=== PATIENT | female | born 1975 | race Caucasian/White ===

== ENCOUNTER 2025-10-14 18:18 | Inpatient (IN) | payer BC, SELFPAY ==
[2025-10-14] VITALS (27 sets, daily range): BP systolic 103–160; BP diastolic 61–93; PULSE 55–79; TEMP 36.4–36.6; O2SAT 94–100; BMI 33.7; BMI 31.6
--- NOTE | 2025-10-14 18:36 | ECG_ITS ---
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 Measurements Intervals [place] Rate: 62 P: 18 HI: 132 QRS: 78 QRSD: 84 T: 52 QT: 396 QTc: 401 Interpretive Statements 1100 Sinus rhythm 9110 normal ECG No previous ECG available for comparison Electronically Signed On 10-15-2025 21:52:28 EST by IAN VARGHESE M.D.
--- NOTE | 2025-10-14 18:40 | CT_ITS ---
The [address] [address] Patient Name: MARCIE SINCLAIR MRN: [id number] date: 1975 Sex: F Assigned Patient Location: ER Current Patient Location: ED.[facility] Accession/Order Number: [id number] Exam Date: 10/14/2025 18:48 Report Date: 10/14/2025 19:06 At the request of: SANTHOSH MENDEZ Procedure: CT stroke head/brain wo con CT BRAIN WITHOUT CONTRAST: CLINICAL HISTORY: Dizziness, Aphasia COMPARISON: None TECHNIQUE: Contiguous axial unenhanced images were obtained through the brain. This CT exam was performed using one or more following dose reduction techniques: Automated exposure control, adjustment of the mA and/or kV according to patient size, or use of iterative reconstruction technique. FINDINGS: There is no evidence of midline shift, intra or extra-axial fluid collection, hemorrhage or CT evidence of acute large vascular distribution stroke Visualized intraorbital contents appear unremarkable. Visualized paranasal sinuses are clear. The surrounding soft tissues are normal. CT/CT stroke head/brain wo con IMPRESSION: NO ACUTE INTRACRANIAL ABNORMALITY. Discussed with the ordering clinician over telephone 1904 hours 10/14/2025 Impression dictated by: Raj Quesada M.D. 10/14/2025 7:06 PM Dictation Location: [place] [address] Electronically authenticated by: [id number] Y Date: 10/14/2025 19:06
--- NOTE | 2025-10-14 19:03 | ED.GENADUL1 ---
HPI HPI - General Adult General Chief complaint: Neuro Symptoms/Deficit Stated complaint: Dizziness Time Seen by Provider: 10/14/25 18:40 Source: patient Mode of arrival: walk-in Limitations: no limitations History of Present Illness HPI narrative: Patient is a 50-year-old female with a PMH of diabetes type 2, implanted loop recorder for bradycardia, and migraines that presents to the emergency department with complaints of blurry vision and feeling fog brained since about 2 to 3 PM today. She denies any previous history of this, does have a history of migraines. She started to get dizzy when she was walking around earlier which caused her to vomit. She denies any nausea. She feels she is having trouble getting her words out now. She denies taking any anticoagulation or antiplatelet medication. Related Data Home Medications ?Medication ?Instructions ?Recorded ?Confirmed alprazolam 0.5 mg tablet mg 10/14/25 estradiol 0.1 mg/24 hr weekly 10/14/25 transdermal patch midodrine 5 mg tablet mg 10/14/25 sertraline 100 mg tablet mg 10/14/25 sitagliptin phosphate 100 mg mg 10/14/25 tablet (Januvia) topiramate 100 mg tablet mg 10/14/25 Allergies Allergy/AdvReac Type Severity Reaction Status Date / Time Penicillins Allergy Severe Hives Verified 10/14/25 19:00 adhesive tape AdvReac Rash Verified 10/14/25 19:00 Opioid HPI Opioid Management Most Recent Opioid Data: Last Pain Scale 4 Today, 18:23 Review of Systems ROS Status of ROS 10 or more systems reviewed and unremarkable except as noted in history and below PFSH PFS Medical History (Updated 10/14/25 @ 21:13 by Andria Butler RN) Implantable loop recorder present ?Z95.818 - Presence of other cardiac implants and grafts (ICD-10) Migraine ?G43.909 - Migraine, unspecified, not intractable, without status migrainosus (ICD-10) Depression ?F32.A - Depression, unspecified (ICD-10) Anxiety ?F41.9 - Anxiety disorder, unspecified (ICD-10) Type 2 diabetes mellitus ?E11.9 - Type 2 diabetes mellitus without complications (ICD-10) Hypotension ?I95.9 - Hypotension, unspecified (ICD-10) Bradycardia ?R00.1 - Bradycardia, unspecified (ICD-10) Social History Little interest or pleasure in doing things: not at all Feeling down, depressed, or hopeless: not at all Exam Narrative Exam Narrative: General: No distress, age-appropriate Skin: Warm, dry, no pallor. No rash. Head: Normocephalic, atraumatic. Neck: Supple, non-tender. Eye: Pupils are equal, round and EOMI. No scleral icterus. Ears, Nose, Mouth, and Throat: No nasal mucosal hypertrophy. Oral mucosa is moist, no posterior oropharynx erythema, uvula is mid-line Cardiovascular: Regular Rate and Rhythm without murmur, gallop or rub. Respiratory: No accessory muscle use or respiratory distress. Lungs are clear to auscultation, no wheezing, rales or rhonchi Chest Wall: no tenderness Musculoskeletal: Full ROM of all extremities, no calf or popliteal tenderness GI: Abdomen is soft, non-distended, non tender to palpation. No masses appreciated. No rebound, guarding, or rigidity noted. Neurological: A&O x4. Mild aphasia. No cranial nerve dysfunction observed. No truncal ataxia. Moves all extremities. Sensation intact. Psychiatric: Cooperative and interactive. Normal mood and affect. Constitutional Vital Signs, click to edit/add: Last Vital Signs Temp 97.9 F 10/14/25 18:23 Pulse 78 10/14/25 18:23 Resp 20 10/14/25 18:23 BP 160/93 H 10/14/25 18:23 Pulse Ox 100 10/14/25 18:23 O2 Del Method Room Air 10/14/25 18:23 Documenting provider has reviewed patient's vital signs: yes Course Vital Signs Vital signs: Vital Signs Temperature 97.9 F 10/14/25 18:23 Pulse Rate 78 10/14/25 18:23 Respiratory Rate 20 10/14/25 18:23 Blood Pressure 160/93 H 10/14/25 18:23 Pulse Oximetry 100 10/14/25 18:23 Oxygen Delivery Method Room Air 10/14/25 18:23 Temperature 97.9 F 10/14/25 18:23 Pulse Rate 78 10/14/25 18:23 Respiratory Rate 20 10/14/25 18:23 Blood Pressure 160/93 H 10/14/25 18:23 Pulse Oximetry 100 10/14/25 18:23 Oxygen Delivery Method Room Air 10/14/25 18:23 Medical Decision Making MDM Narrative Medical decision making narrative: 50-year-old female presenting with acute-onset blurry vision, dizziness with vomiting, cognitive ?fog,? and new mild expressive aphasia (NIHSS 1) that started around 2pm today. PMH significant for Type 2 diabetes, migraines, and loop recorder placement for bradycardia. Given the sudden focal neurologic deficit, stroke/TIA remained the primary concern on arrival. EKG, NSR, no ischemic changes. CT head was negative for acute hemorrhage and CTA head/neck showed no large vessel occlusion or hemodynamically significant stenosis. CBC and CMP were within normal limits and vitals remained stable, making metabolic or infectious etiologies less likely. Differential includes small cortical ischemic stroke, TIA (including possible cardioembolic source given arrhythmia history), and complex migraine. Due to persistent symptoms, mechanisms of potential stroke not excluded by CT/CTA, and need for MRI brain patient is admitted for further workup and continued neurologic assessment. I did discuss her imaging and lab results and recommended admission and she is agreeable. I did speak with Dr. Gan for admission and he is agreeable to admit patient to observation. Patient given aspirin 325 mg in ED. Vital signs stable and neurological exam remained unchanged during her ED course. Patient admitted to the floor in stable condition. Differential Diagnosis Differential Diagnosis: Ischemic stroke, TIA, migraine with aura, intracranial hemorrhage Lab Data Lab results reviewed: Yes I reviewed the patient's lab results Labs: Lab Results 10/14/25 Range/Units 18:30 WBC 9.9 (4.0-11.0) 10^3/uL RBC 5.01 (4.20-5.40) 10^6/uL Hgb 13.7 (12.0-16.0) g/dL Hct 42.7 (36.0-48.0) % MCV 85.2 (81.0-99.0) fL MCH 27.3 (26.7-34.0) pg MCHC 32.1 (29.9-35.2) g/dL RDW 14.1 (11.0-15.0) % Plt Count 365 (150-450) 10^3/uL MPV 10.1 (9.5-13.5) fL Neut % (Auto) 59.7 (43.0-75.0) % Lymph % (Auto) 31.5 (20.5-60.0) % [place] % (Auto) 6.3 (1.7-12.0) % Eos % (Auto) 1.4 (0.9-7.0) % Baso % (Auto) 0.7 (0.2-2.0) % Neut # (Auto) 5.9 (1.4-6.5) 10^3/uL Lymph # (Auto) 3.1 (1.2-3.8) 10^3/uL [place] # (Auto) 0.6 (0.3-0.8) 10^3/uL Eos # (Auto) 0.1 (0.0-0.7) 10^3/uL Baso # (Auto) 0.1 (0.0-0.1) 10^3/uL Abs Immat Gran (auto) 0.04 H (0.00-0.03) 10^3/uL Imm/Tot Granulo (auto) 0.4 (0.0-0.5) % Sodium 140 (136-145) mmol/L Potassium 3.9 (3.5-5.1) mmol/L Chloride 105 (98-107) mmol/L Carbon Dioxide 26.4 (21.0-32.0) mmol/L Anion Gap 12.5 BUN 11.0 (7.0-18.0) mg/dL Creatinine 0.81 (0.55-1.02) mg/dL Est GFR ( Amer) >60 (>=60 mL/min/1.73m^2) Est GFR (Non-Af Amer) >60 (>=60 mL/min/1.73m^2) BUN/Creatinine Ratio 13.6 Glucose 90 (74-106) mg/dL Calcium 8.4 L (8.5-10.1) mg/dL Total Bilirubin 0.3 (0.2-1.0) mg/dL AST 17 (15-37) U/L ALT 30 (14-59) U/L Alkaline Phosphatase 69 (46-116) U/L Total Protein 8.0 (6.4-8.2) g/dL Albumin 4.0 (3.4-5.0) g/dL Globulin 4.0 g/dL Albumin/Globulin Ratio 1.[address] scan - head: Attestation: I have reviewed the pertinent imaging results. Radiologist's impression: ITS Impressions Brain CT 10/14/25 18:40 IMPRESSION: NO ACUTE INTRACRANIAL ABNORMALITY. Discussed with the ordering clinician over telephone 1905 hours 10/14/2025 Impression dictated by: Raj Quesada M.D. 10/14/2025 7:06 PM Dictation Location: [facility] Electronically authenticated by: [id number] Y Date: 10/14/2025 19:06 Head CTA 10/14/25 19:10 IMPRESSION: Negative for large vessel occlusion or hemodynamically stenosis. Impression dictated by: Raj Quesada M.D. 10/14/2025 8:23 PM Dictation Location: [facility] Electronically authenticated by: [id number] Y Date: 10/14/2025 20:23 Neck CTA 10/14/25 19:10 IMPRESSION: Negative for large vessel occlusion or hemodynamically stenosis. Impression dictated by: Raj Quesada M.D. 10/14/2025 8:23 PM Dictation Location: [employer] Electronically authenticated by: [id number] Y Date: 10/14/2025 20:23 ECG Data Attestation: ?I have reviewed the pertinent ECG results. Discharge Plan Discharge Chief Complaint: Neuro Symptoms/Deficit Clinical Impression: Aphasia, Dizziness Patient Disposition: Admitted as Observation Time of Disposition Decision: 21:11 Condition: Good Discharge Date/Time: 10/14/25 22:07
[2025-10-14 19:07] LABS: Hematocrit 42.7 % (36.0-48.0); Hemoglobin 13.7 g/dL (12.0-16.0); Immature Granulocytes Abs Auto 0.04 10^3/uL (0.00-0.03); Immature Granulocytes Pct Auto 0.4 % (0.0-0.5); Lymphocytes Absolute Auto 3.1 10^3/uL (1.2-3.8); Mean Corpuscular HGB Conc 32.1 g/dL (29.9-35.2); Mean Corpuscular Hemoglobin 27.3 pg (26.7-34.0); Mean Corpuscular Volume 85.2 fL (81.0-99.0); Platelet Count 365 10^3/uL (150-450); Red Blood Count 5.01 10^6/uL (4.20-5.40); White Blood Count 9.9 10^3/uL (4.0-11.0)
--- NOTE | 2025-10-14 19:10 | CT_ITS ---
The [address] [address] Patient Name: MARCIE SINCLAIR MRN: [id number] date: 1975 Sex: F Assigned Patient Location: ED.MAIN Current Patient Location: ED.MAIN Accession/Order Number: [id number] Exam Date: 10/14/2025 19:25 Report Date: 10/14/2025 20:23 At the request of: SANTHOSH MENDEZ Procedure: CT angio neck CT angiogram head and neck CLINICAL HISTORY: Blurry vision, Dizziness, aphasia COMPARISON: CT head 10/14/2025 TECHNIQUE: CT angiogram images obtained through the head and neck with coronal and sagittal reformats. This CT exam was performed using one or more following dose reduction techniques: Automated exposure control, adjustment of the mA and/or kV according to patient size, or use of iterative reconstruction technique. FINDINGS: Bovine configuration of the arch. Carotid arteries patent throughout the course without hemodynamically significant stenosis or occlusion. Vertebral arteries are patent and codominant. Intracranial ICAs are patent. ACAs and MCAs are patent. Intradural vertebral arteries, basilar artery, basilar tip and basilar bifurcation unremarkable. Posterior cerebral arteries are patent. CT/CT angio neck IMPRESSION: Negative for large vessel occlusion or hemodynamically stenosis. Impression dictated by: Raj Quesada M.D. 10/14/2025 8:23 PM Dictation Location: [place] [address] Electronically authenticated by: [id number] Y Date: 10/14/2025 20:23
--- NOTE | 2025-10-14 19:10 | CT_ITS ---
The [address] [address] Patient Name: MARCIE SINCLAIR MRN: [id number] date: 1975 Sex: F Assigned Patient Location: ED.MAIN Current Patient Location: ED.MAIN Accession/Order Number: [id number] Exam Date: 10/14/2025 19:25 Report Date: 10/14/2025 20:23 At the request of: SANTHOSH MENDEZ Procedure: CT angio neck CT angiogram head and neck CLINICAL HISTORY: Blurry vision, Dizziness, aphasia COMPARISON: CT head 10/14/2025 TECHNIQUE: CT angiogram images obtained through the head and neck with coronal and sagittal reformats. This CT exam was performed using one or more following dose reduction techniques: Automated exposure control, adjustment of the mA and/or kV according to patient size, or use of iterative reconstruction technique. FINDINGS: Bovine configuration of the arch. Carotid arteries patent throughout the course without hemodynamically significant stenosis or occlusion. Vertebral arteries are patent and codominant. Intracranial ICAs are patent. ACAs and MCAs are patent. Intradural vertebral arteries, basilar artery, basilar tip and basilar bifurcation unremarkable. Posterior cerebral arteries are patent. CT/CT angio head IMPRESSION: Negative for large vessel occlusion or hemodynamically stenosis. Impression dictated by: Raj Quesada M.D. 10/14/2025 8:23 PM Dictation Location: [place] [address] Electronically authenticated by: [id number] Y Date: 10/14/2025 20:23
[2025-10-14 19:18] LABS: Alanine Aminotransferase 30 U/L (14-59); Albumin Globulin Ratio 1.0; Albumin Level 4.0 g/dL (3.4-5.0); Alkaline Phosphatase 69 U/L (46-116); Anion Gap 12.5; Aspartate Amino Transferase 17 U/L (15-37); Blood Urea Nitrogen 11.0 mg/dL (7.0-18.0); Calcium 8.4 mg/dL (8.5-10.1); Carbon Dioxide 26.4 mmol/L (21.0-32.0); Chloride 105 mmol/L (98-107); Estimated GFR (African America >60 (>=60 mL/min/1.73m^2); Estimated GFR (Non-African Ame >60 (>=60 mL/min/1.73m^2); Globulin 4.0 g/dL; Glucose 90 mg/dL (74-106); Potassium 3.9 mmol/L (3.5-5.1); Sodium 140 mmol/L (136-145); Total Protein 8.0 g/dL (6.4-8.2)
--- NOTE | 2025-10-14 20:31 | ECG_ITS ---
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 Measurements Intervals [place] Rate: 55 P: 12 [place]: 138 QRS: 73 QRSD: 84 T: 50 QT: 426 QTc: 416 Interpretive Statements 1100 Sinus rhythm 2420 RSR (QR) in lead V1/V2, consistent with right ventricular conduction delay 8102 Low QRS voltage in chest leads 9130 borderline ECG No previous ECG available for comparison Electronically Signed On 10-14-2025 20:53:06 EST by IAN VARGHESE M.D.
[2025-10-14] MEDS: ASPIRIN 325 MG TABLET PO (21:06)
[2025-10-14] MEDS: ENOXAPARIN SODIUM 40 MG/0.4 ML SYRINGE SUBQ (23:39)
[2025-10-14] MEDS: ATORVASTATIN CALCIUM 40 MG TABLET 80 MG PO (23:39)
[2025-10-14] MEDS: OXYCODONE HCL 5 MG TABLET 10 MG PO (23:54)
[2025-10-14] MEDS: TOPIRAMATE 100 MG TABLET PO (23:54)
[2025-10-15] VITALS (19 sets, daily range): BP systolic 96–113; BP diastolic 61–75; PULSE 52–78; TEMP 36.3–36.6; O2SAT 94–97
--- NOTE | 2025-10-15 | MR_ITS ---
The [address] [address] Patient Name: MARCIE SINCLAIR MRN: [id number] date: 1975 Sex: F Assigned Patient Location: MS Current Patient Location: MS Accession/Order Number: [id number] Exam Date: 10/15/2025 09:25 Report Date: 10/15/2025 11:15 At the request of: JULIANE CARPENTER MD Procedure: MR head/brain wo/w con MRI of the brain with and without IV contrast. Reason for exam: Double vision with right-sided weakness one day ago which has improved since initial onset. COMPARISON: Stroke workup 10/14/[address] TECHNIQUE: Multisequence, multiplanar imaging of the brain was performed before and after the use of IV contrast. FINDINGS: No evidence restricted diffusion is an diffusion-weighted imaging. No evidence of blood products are seen on T2 Star imaging. No abnormal white matter signal seen on the T2 and T2 FLAIR imaging. Posterior fossa appears unremarkable. Intraorbital contents appear unremarkable. No significant paranasal sinus disease. Structures appear unremarkable. Postcontrast images demonstrate no abnormal enhancement. MR/MR head/brain wo/w con IMPRESSION: No acute intracranial abnormality. No abnormal enhancement. Impression dictated by: Dhruv Espinoza Jr.OSonny 10/15/2025 11:15 AM Dictation Location: [place] [address] Electronically authenticated by: [id number] Y Date: 10/15/2025 11:15
[2025-10-15] MEDS: ONDANSETRON 4 MG RAPDIS TABLET PO (01:49)
[2025-10-15] MEDS: OXYCODONE HCL 5 MG TABLET 10 MG PO (05:07)
[2025-10-15 05:41] LABS: Hematocrit 38.4 % (36.0-48.0); Hemoglobin 12.1 g/dL (12.0-16.0); Immature Granulocytes Abs Auto 0.02 10^3/uL (0.00-0.03); Immature Granulocytes Pct Auto 0.3 % (0.0-0.5); Lymphocytes Absolute Auto 3.9 10^3/uL (1.2-3.8); Mean Corpuscular HGB Conc 31.5 g/dL (29.9-35.2); Mean Corpuscular Hemoglobin 26.9 pg (26.7-34.0); Mean Corpuscular Volume 85.5 fL (81.0-99.0); Platelet Count 298 10^3/uL (150-450); Red Blood Count 4.49 10^6/uL (4.20-5.40); White Blood Count 7.5 10^3/uL (4.0-11.0)
[2025-10-15 06:08] LABS: Alanine Aminotransferase 24 U/L (14-59); Albumin Globulin Ratio 1.0; Albumin Level 3.2 g/dL (3.4-5.0); Alkaline Phosphatase 55 U/L (46-116); Anion Gap 10.8; Aspartate Amino Transferase 13 U/L (15-37); Blood Urea Nitrogen 9.0 mg/dL (7.0-18.0); Calcium 8.4 mg/dL (8.5-10.1); Carbon Dioxide 26.0 mmol/L (21.0-32.0); Chloride 108 mmol/L (98-107); Cholesterol 195 mg/dL (<=200); Estimated GFR (African America >60 (>=60 mL/min/1.73m^2); Estimated GFR (Non-African Ame >60 (>=60 mL/min/1.73m^2); Globulin 3.3 g/dL; Glucose 81 mg/dL (74-106); HDL Cholesterol 52 mg/dL (40-60); Magnesium 2.0 mg/dL (1.8-2.4); Potassium 3.8 mmol/L (3.5-5.1); Sodium 141 mmol/L (136-145); Total Protein 6.5 g/dL (6.4-8.2); Triglycerides 120 mg/dL (<=150); VLDL CHOLESTEROL 24.0 mg/dL
--- NOTE | 2025-10-15 07:55 | CM.NOTE ---
Addendum entered by Janett Melton 10/15/25 12:05: MRI and CT images pushed through in system for [facility] to view. Original Note: Rounds made with Dr. Gan, discussed plan of care with pt. Pt will have MRI today and PT will evaluate pt for discharge planning.
--- NOTE | 2025-10-15 08:00 | ECG_ITS ---
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 Measurements Intervals [place] Rate: 51 P: 29 NV: 161 QRS: 36 QRSD: 97 T: 39 QT: 443 QTc: 410 Interpretive Statements SINUS BRADYCARDIA LOW QRS VOLTAGE IN PRECORDIAL LEADS [QRS DEFLECTION < 1.0 mV IN CHEST LEADS] Compared to ECG 10/14/2025 20:33:23 Borderline ECG No significant changes Electronically Signed On 10-15-2025 21:53:30 EST by IAN VARGHESE M.D.
[2025-10-15] MEDS: ENOXAPARIN SODIUM 40 MG/0.4 ML SYRINGE SUBQ (08:06)
[2025-10-15] MEDS: ASPIRIN 325 MG TABLET.DR PO (08:06)
--- NOTE | 2025-10-15 08:20 | PM.HP ---
HPI H&P: HPI History of Present Illness Chief complaint: Aphasia, dizziness Narrative: Mrs. Fernandes is a 50-year-old female with a known history of diabetes, low blood pressure and anxiety. Patient came to the emergency room after she developed blurry and double vision. Patient also reported that she could not express /articulate her thought process. Please refer to emergency room record for details. Patient had a CAT scan of the head which came back negative for acute intracranial process. CT of the head and neck are negative. Her NIH score reported to be 1. It was determined that patient is not a candidate for thrombolysis nor candidate for thrombectomy. I had accepted to admit patient to the medical floor. Patient reported that her blurry and double vision had resolved however she continues to have slow process articulating her thoughts and what she nneds to say. Emergency room physician felt that she may have subtle left arm weakness but today on her exam her left arm strength is normal. Opioid HPI Opioid Management Most Recent Pain and Opioid Data: Last Pain Scale 0 Today, 08:05 Last Pain Assessment Today, 08:14 Last MAR Pain Assessment Today, 08:05 Last ORT Total Score 0 10/14/25, 22:19 Last ORT Risk Category Low Risk 10/14/25, 22:19 PFSH PFSH Medical History (Updated 10/15/25 @ 08:25 by Benita Gan MD) Implantable loop recorder present ?Z95.818 - Presence of other cardiac implants and grafts (ICD-10) Migraine ?G43.909 - Migraine, unspecified, not intractable, without status migrainosus (ICD-10) Depression ?F32.A - Depression, unspecified (ICD-10) Anxiety ?F41.9 - Anxiety disorder, unspecified (ICD-10) Type 2 diabetes mellitus ?E11.9 - Type 2 diabetes mellitus without complications (ICD-10) Hypotension ?I95.9 - Hypotension, unspecified (ICD-10) Bradycardia ?R00.1 - Bradycardia, unspecified (ICD-10) Surgical History (Updated 10/15/25 @ 06:18 by Yoel Gamez) H/O gastric bypass ?Z98.84 - Bariatric surgery status (ICD-10) Family History (Updated 10/15/25 @ 06:20 by Yoel Gamez) Father Family history of diabetes mellitus Family history of myocardial infarction H/O heart artery stent CHF (congestive heart failure) Mother Family history of diabetes mellitus Grandmother Family history of stroke Other Family history of CHF (congestive heart failure) Social History Highest level of school completed/degree received: Bachelor's degree Little interest or pleasure in doing things: several days Feeling down, depressed, or hopeless: several days Meds Home Medications and Allergies Home Medications ?Medication ?Instructions ?Recorded ?Confirmed ?Type alprazolam 0.5 mg tablet mg 10/14/25 History estradiol 0.1 mg/24 hr weekly 10/14/25 History transdermal patch midodrine 5 mg tablet mg 10/14/25 History sertraline 100 mg tablet mg 10/14/25 History sitagliptin phosphate 100 mg mg 10/14/25 History tablet (Januvia) topiramate 100 mg tablet mg 10/14/25 History Allergies Allergy/AdvReac Type Severity Reaction Status Date / Time Penicillins Allergy Severe Hives Verified 10/14/25 19:00 adhesive tape AdvReac Rash Verified 10/14/25 19:00 Exam Narrative Exam Narrative: [pt is awake and alert. oriented to place, time and person HEENT: [place] conjunctiva and NL buccal mucosa Neck: Supple, no tenderness Endocrine: No Thyromegaly. Vascular: No JVD or carotid bruit. Lymphatic: No cervical lymphadenopathy. Chest: CTA no DTP. Heart RRR, no extra sound or murmur. Abd: Soft, no tenderness, no rebound and no rigidity. Increase abd girth therefore clinically I could not exclude the possibility of intra abd mass or organomegaly. LE: No cyanosis or clubbing, no varices or edema. Neuro: A A O. Patient has horizontal nystagmus. Patient is slow to express her thoughts but her speech is clear. Normal facial musculature. Normal upper and lower extremities strength and reflexes. No sensory loss. Normal mentation. Normal focus. Patient is able to engage in conversation. []] Constitutional Vital Signs, click to edit/add: Last Vital Signs Temp 97.6 F 10/15/25 08:14 Pulse 68 10/15/25 08:14 Resp 16 10/15/25 04:45 BP 99/65 10/15/25 08:14 Pulse Ox 95 10/15/25 08:14 O2 Del Method Room Air 10/15/25 08:14 Results Labs Labs: Short CBC 10/14/25 10/15/25 Range/Units 18:30 04:42 WBC 9.9 7.5 (4.0-11.0) 10^3/uL Hgb 13.7 12.1 (12.0-16.0) g/dL Hct 42.7 38.4 (36.0-48.0) % Plt Count 365 298 (150-450) 10^3/uL BMP 10/14/25 10/15/25 18:30 04:42 Sodium 140 141 Potassium 3.9 3.8 Chloride 105 108 H Carbon Dioxide 26.4 26.0 BUN 11.0 9.0 Creatinine 0.81 0.61 Glucose 90 81 Calcium 8.4 L 8.4 L Liver Function 10/14/25 10/15/25 Range/Units 18:30 04:42 Total Bilirubin 0.3 0.2 (0.2-1.0) mg/dL AST 17 13 L (15-37) U/L ALT 30 24 (14-59) U/L Alkaline Phosphatase 69 55 (46-116) U/L Albumin 4.0 3.2 L (3.4-5.0) g/dL Assessment and Plan Assessment and Plan (1) TIA (transient ischemic attack): Plan Transient ischemic attack is suspected. Blurry and double vision have resolved. Patient continues to have nystagmus and subtle slow expressive aphasia. Patient did not qualify for thrombolysis or thrombectomy. CT head, CTA head and neck are negative. I started patient on aspirin and Lipitor 80 mg daily. I requested A1c which came back slightly elevated I requested MRI of the brain with and without contrast to confirm and/or rule out ischemic injury versus other possible etiologies such as brain occupying lesion, edema, demyelination and others. Diabetes A1c 6.3 Patient is on sitagliptin. May need to add another agent. Metformin, for 8 hours after CTA is completed. Chronic headache for which patient is on Topamax Depression anxiety for which patient is on sertraline Chronic hypotension for which patient is on midodrine DVT prophy Lovenox subcu injection. Patient status is adynamic and evolutionary therefore the aforementioned assessment and plan may or may not be complete or conclusive. The patient would likely require to have additional workup, investigation and therapeutic intervention that will be determined based on the clinical progression and follow-up test result.
[2025-10-15] MEDS: SERTRALINE HCL 50 MG TABLET 100 MG PO (09:10)
[2025-10-15] MEDS: ACETAMINOPHEN 325 MG TABLET 650 MG PO ×2 (10:24→16:30)
[2025-10-15] MEDS: LINAGLIPTIN 5 MG TABLET PO (10:24)
[2025-10-15] MEDS: SERTRALINE HCL 50 MG TABLET PO (10:24)
--- NOTE | 2025-10-15 11:50 | CM.NOTE ---
Filipe alcalat sent to Dr. Gan , if pt will need teleneuro consult. [facility]
--- OUTSIDE RECORDS SUMMARY | 2025-10-15 12:03 | XMS_ITS | Encounter Summary ---
Author Organization [employer] [facility] [employer] Address [id number] [address] [place] [address] Care Team Providers Care [place] Opener Name Role Phone Unavailable Primary Care Provider Unavailabl e Encounter Details DateTypeDepartmentCare Team (Latest Contact Info)Mocefxjftvn29/05/2025 12:03 PM EST - PresentEmergency [facility] [address] [place] [address] Social History Tobacco UseTypesPacks/DayYears UsedDateSmoking Tobacco: Never Assessed CommentsUnknownSex and Gender InformationValueDate RecordedSex Assigned at Not on fileLegal JqqBoigsn78/05/2025 12:01 PM ESTGender IdentityNot on file Sexual OrientationNot on filedocumented as of this encounter Plan of Treatment Not on file documented as of this encounter Visit Diagnoses Not on filedocumented in this encounter
[2025-10-15] MEDS: MIDODRINE HCL 5 MG TABLET PO ×2 (12:49→16:30)
--- OUTSIDE RECORDS SUMMARY | 2025-10-15 13:54 | XMS_ITS | Clinical Summary ---
Author Organization [facility] Address [address] [place] [address] Care Team Providers Care Merchandise Associate Name Role Phone Herman Palacio MD Primary Care Prov ider Allergies Active AllergyReactionsCriticalityNoted WxduYscptimuCzbqmaqszjsVuqnVsj87/27/2018 Medications MedicationSigDispense QuantityRefillsLast FilledStart DateEnd DateStatus metFORMIN (GLUCOPHAGE) 1000 MG tablet Take 1,000 mg by mouth 2 (two) times a day with meals.Active sertraline (ZOLOFT) 50 MG tablet Take 50 mg by mouth daily Take 75 mg nightly .Active omeprazole (PRILOSEC) 40 MG capsule Take 40 mg by mouth daily.Active atorvastatin (LIPITOR) 10 MG tablet Take 10 mg by mouth daily.Active isosorbide mononitrate (IMDUR) 30 MG 24 hr tablet Take 30 mg by mouth daily Take 1/2 tablet daily .Active ranitidine (ZANTAC) 150 MG tablet Take 1 (one) tablet (150 mg total) by mouth 2 (two) times a day. 60 tablet Active fexofenadine (ANIRUDH) 180 MG tablet Take 180 mg by mouth 2 (two) times a day.Active Active Problems ProblemNoted DateDiagnosed UhenFmaddpvrx52/27/2018Angio-edema07/07/2018Chronic swzurqft09/27/2018 Social History Tobacco UseTypesPacks/DayYears UsedDateSmoking Tobacco: Passive Smoke Exposure - Never SmokerSmokeless Tobacco: NeverAlcohol UseStandard Drinks/WeekCommentsYes2 (1 standard drink = 0.6 oz pure alcohol)CommentsUnknownSex and Gender InformationValueDate RecordedSex Assigned at BirthNot on fileLegal SexFemale 07/03/2018 3:43 PM EDTGender IdentityNot on fileSexual OrientationNot on file Last Filed Vital Signs Vital SignReadingTime TakenCommentsBlood Ttiefmpn465/7109 3:53 PM EDT Bbivq7754 3:53 PM EDTTemperature--Respiratory Rdmj106907/28/2018 3:53 PM EDTOxygen Saturation--Inhaled Oxygen Concentration--Uqizxy494.5 kg (226 lb) 07/28/2018 3:53 PM EDTHeight--Body Mass Index-- Plan of Treatment Health MaintenanceDue DateLast DoneCommentsCT Ixfvplnqspfh1974Colonoscopy 1974Colorectal Cancer Screening/Hzcalvsurb1974Fecal DNA1974 Fecal occult blood test (FOBT,FIT)1974MMR Vaccines (1 of 1 - Standard series)1975Depression Screening/Follow-Up (PHQ-2/9)1986HIV Screening 1989Hepatitis C Tbvjqssmw23/19/1992Hepatitis B Vaccines (1 of 3 - 19+ 3- dose series)1993Pap Smear1995Cervical Cancer Trotjhfky18/19/2004 HPV/Pavnbn2506/29/2004Tetanus/Diphtheria/Pertussis (2 - Tdap) Wellness Visit, 05/07/2017, 02/16/2015, Additional history existsPneumococcal Vaccine: 50+ Years (1 of 1 - PCV)2024Zoster Vaccines (1 of 2)2024OVID-19 Vaccine (1 - 2024- season)2025Influenza Vaccine (#1), 09/13/2017, 08/11/2016RSV Vaccines (1 - 1-dose 75+ series)06/29/20493060OorwfaszuLfdinpxirgmm29/18/2018HIB VaccinesAged OutNo longer eligible based on patient's age to complete this topicHPV VaccinesAged OutNo longer eligible based on patient's age to complete this topicHepatitis A VaccinesAged OutNo longer eligible based on patient's age to complete this topic IPV VaccinesAged OutNo longer eligible based on patient's age to complete this topicMeningococcal ACWY VaccineAged OutNo longer eligible based on patient's age to complete this topicMeningococcal B VaccineAged OutNo longer eligible based on patient's age to complete this topicRotavirus VaccinesAged OutNo longer eligible based on patient's age to complete this topic Insurance Care Teams Team MemberRelationshipSpecialtyStart DateEnd Date Herman Palacio MD [address] [place] [address] [place] [address] PCP - GeneralInternal Medicine07/07/18
--- OUTSIDE RECORDS SUMMARY | 2025-10-15 13:54 | XMS_ITS | Clinical Summary ---
Author Organization [id number] [address] [place] [address] Care Team Providers Care Tandem Operator Name Role Phone Unavailable Primary Care Provider Unavailabl e Encounters DateTypeDepartmentCare SjqnFnqdocliyis98/05/2025 12:03 PM EST - PresentEmer[facility] [address] [place] [address] from Last 3 Months Social History Tobacco UseTypesPacks/DayYears UsedDateSmoking Tobacco: Never Assessed CommentsUnknownSex and Gender InformationValueDate RecordedSex Assigned at Not on fileLegal RawFdueru63/05/2025 12:01 PM ESTGender IdentityNot on file Sexual OrientationNot on file Plan of Treatment Health MaintenanceDue DateLast DoneCommentsDepression Gfhlbxgwz35/19/1986Tobacco Gqufrojaj14/19/1986Adult BMI Doepxjmqz28/19/1992Pap Smear, 03/25/2018COVID-19 Vaccine ( season)5111/18/2023, 09/21/2022, 10/18/2021, Additional history existsZoster (Shingles) Vaccine (2 of 2) 6111/30/2024DTaP,Tdap and Td Vaccines (3 - Td or Tdap)07/20/2032 07/20/2022, 05/07/2008Influenza SozjdnnKgwbscugh55/20/2025, 09/18/2024, 09/18/2023, Additional history exists Medical Devices Not on file
--- OUTSIDE RECORDS SUMMARY | 2025-10-15 13:55 | XMS_ITS | Clinical Summary ---
Author Organization [facility] Address [address], [address] [place] [address] Care Team Providers Care Applications Manager Name Role Phone Bobby Valdez RAIL PROJECT ENGINEER - HEALTH CENTER ASSISTANT Primary Care Provider Allergies Active AllergyReactionsCriticalityNoted DateCommentsWound Dressing AdhesiveOther (See Comments)High03/19/2025 Rash and cellulitis RmrjtijxaqrNklqWtm21/29/2012 Medications MedicationSigDispense QuantityRefillsLast FilledStart DateEnd DateStatus loratadine (CLARITIN) 10 MG capsule Take 1 capsule by mouth dailyActive omekidnekm-yxfudvcakbfnn-lzcsuoro (FIORICET, ESGIC) 50-325-40 MG per tablet Indications:Chronic migraine without aura without status migrainosus, not intractableTake 1 tablet by mouth every 4 hours as needed for Headaches 180 tablet ctive ondansetron (ZOFRAN ODT) 4 MG disintegrating tablet Take 1 tablet by mouth every 8 hours as needed for Nausea or Vomiting 12 tablet 02/05/2023ctive clobetasol (TEMOVATE) 0.05 % ointment Indications:Vaginal irritationApply topically 2 times daily as needed for vulvar irritation 30 g ctive midodrine (PROAMATINE) 5 MG tablet Take 1 tablet by mouth 2 times daily Please do not take three hours before bedtime 60 tablet 5Active topiramate (TOPAMAX) 100 MG tablet Indications:Chronic migraine without aura without status migrainosus, not intractableTAKE 1 TABLET BY MOUTH EVERY NIGHT 90 tablet 5Active sertraline (ZOLOFT) 100 MG tablet Indications:Anxiety and depressionTAKE 1 AND 1/2 TABLETS BY MOUTH DAILY 135 tablet 5Active JANUVIA 100 MG tablet Indications:Controlled type 2 diabetes mellitus without complication, with long- term current use of insulin (HCC)TAKE 1 TABLET BY MOUTH DAILY 90 tablet 5Active estradiol (CLIMARA) 0.1 MG/24HR Indications:MenopausePlace 1 patch onto the skin every 7 days 12 patch 5Active ALPRAZolam (XANAX) 0.5 MG tablet Indications:Anxiety and depressionTAKE 1 TABLET BY MOUTH EVERY NIGHT NEEDED FOR ANXIETY. MAX DAILY AMOUNT: 0.5 MG 30 tablet 506Active Active Problems Patient Care Coordination No te Formatting of this note is d ifferent from the original. Post -op Bariatric Summary Procedure: bypass Surgeon:Dr. Montaño HT: 5'3 Date Weight Labs Ordered Labs Resulted Notes Initial Wt 12-07-20 218 Day of Surgery 07-24-21 201 1 Wk Post-op 08-02-21 196 5 Wk Post-op 08-23-21 189 y 3 Mon Post-op 10-18-21 176 y 10-11-21 6 Mon Post-op 01-11-22 9 Mon Post-op ? 1 Year Post-op ? Annual ? ? Starting at 1 Wk Post-op: Bariatric Multivitamin with iron and Calcium ProblemNoted DateDiagnosed DateAtypical chest pain05/04/20250246Tmarzii26/09/2025 Family history of colon cancer in idlcek9103/03/2025HLD (hyperlipidemia)07/25/2022 Elevated liver wsxtpgf9907/25/2022verweight (BMI 25.0-29.9)01/17/2022Vitamin D uuwjxjfrou93/08/2021hronic migraine without aura without status migrainosus, not urhrtqvylmq84/11/2021/P gastric gwtmfj2807/25/2021/P bariatric surgery 07/24/20211803Wbuoqeafr86/10/2021nxiety and eljmainhtn66/10/2021hronic migraine 01/18/2021Microcytic aokotx7804/27/2020Iron deficiency kmygzz0604/27/2020Iron zozmntjnejucb48/17/2020Nervousness / anxiety with depression / CONTROLLED 11/06/2017Angina vvezuthb47/08/2016 Overview (05/18/2016): Possible unstable angina. Controlled type 2 diabetes mellitus without complication, with long-term current use of insulinSyndrome X (cardiac) Resolved Problems ProblemNoted DateDiagnosed DateResolved DateEncounter for screening colonoscopy /3933Dpwiruzytax04Obesity (BMI 30-39.9) /07/2022Gastroesophageal reflux disease without esophagitis /12/2023Wellness bqjwaifdqbr56Chronic shoulder painAbnormal cardiovascular stress test 11/14/2018 Overview (08/26/2012): low-intermediate risk study. Narvaez treadmill score of 0.5. Incisional djszwr42Type 2 diabetes mellitus with obesity 06/06/2023 Overview (08/11/2025): Problem List Diagnosis Replacement Utility 08/11/2024 Replacing diagnoses that were inactivated after the 08/11 regulatory import Gastroesophageal reflux disease with pyeibefecpf33/02/2024elvic pain01/29/2020 Hiatal hernia with GERD without czepddxlrib44/14/2022Morbid nttarzw2707/25/2022 Encounters DateTypeDepartmentCare HlbgKyueccsszyf11/05/2025[facility] [address] [place] [address] Bobby Valdez, RAIL PROJECT ENGINEER - HEALTH CENTER ASSISTANT 10/15/2025[facility] [address] [place] [address] MightBobby APRN - HEALTH CENTER ASSISTANT 10/15/2025bstract [facility] [address] [place] [address] Bobby Valdez APRN - HEALTH CENTER ASSISTANT 09/23/2025 12:25 AM ESTClinical Support [facility] Part of [address] [place] [phone] Encounter for loop recorder check (Primary Dx); Syncope and wuexoltn82/27/2025 1:40 PM EDTOffice Visit [place] [address] [place] [address] Bobby Valdez APRN - HEALTH CENTER ASSISTANT Controlled type 2 diabetes mellitus without complication, with long-term current use of insulin (HCC) (Primary Dx); Anxiety and xfcklokknd95/23/2025 4:40 PM EDTOffice Visit [address] [address] Bobby Valdez APRN - HEALTH CENTER ASSISTANT Acute non-recurrent pansinusitis (Primary Dx); Acute bronchitis, unspecified xhsdjeni71/22/2025 8:00 AM EDT - 09/01/2025 11:59 PM EDTHospital Encounter [place] [id number] Controlled type 2 diabetes mellitus without complication, with long-term current use of insulin (HCC) Discharge Disposition: Home or Self Care08/30/2025Telephone [address] [address] Bobby Valdez APRN - HEALTH CENTER ASSISTANT labs08/29/2025Refill [address] [address] Saloni Pinto APRN - CNP Medication Emvoti9908/18/2025bstract [facility] Part of [address] [place] [phone] Gloria Boyd MA 08/17/2025 11:30 AM EDTOffice Visit [facility] Part of [address] [place] [address] Sandi Ott APRN - JAVI Syncope and collapse (Primary Dx); Syndrome X (cardiac); Palpitations; Intermittent palpitations; Orthostatic intolerance; Syncope, unspecified syncope type; History of gastric bypass; Encounter for loop recorder check08/17/2025 8:00 AM EDTClinical Support [facility] Part of [address] [address] Syncope and collapse (Primary Dx); Encounter for loop recorder check08/16/2025Orders Only [facility] Part of [address] [place] [address] Debbie Penn APRN - CNM Encounter for screening mammogram for breast cancer (Primary Dx)08/16/2025Refill [facility] Part of [address] [place] [address] Debbie Penn APRN - CNM Medication Refillfrom Last 3 Months Immunizations ImmunizationAdministration DatesNext DueCOVID-19, Inactive, MODERNA BLUE border, Primary or Immunocompromised, (age 12y+)09/21/2022,10/18/2021,02/17/2021, 02/17/2021,02/17/2021,01/20/2021,4369COfK46/27/2008Hep B, ENGERIX-B, RECOMBIVAX-HB, (age 20y+), IM, 1mL112/30/2007,2008,04/29/2008Influenza Vaccine, unspecified vnlhlcaqtjn69/01/2016Influenza Virus Bvgzxhr8209/18/2023, 09/18/2022,09/13/2021,09/13/2021,09/16/2020,09/25/2019,09/23/2018,09/13/2017PPD Test02/24/2015Pneumococcal, PCV-13, PREVNAR 13, (age 6w+), IM, 0.5mL10/14/2020 Pneumococcal, PCV20, PREVNAR 20, (age 6w+), IM, 0.5mL12/18/2024TDaP, ADACEL (age 10y-64y), BOOSTRIX (age 10y+), IM, 0.5mL07/20/2022 Family History Medical HistoryRelationNameCommentsAnemiaFatherJerry GruberCancerFatherJerry GruberkidneyColon CancerFatherJerry GruberDiabetesFatherJerry GruberHeart Attack FatherJerry GruberHeart DiseaseFatherJerry GruberMI x 2 Stent placement X 4High Blood PressureFatherJerry GruberHigh CholesterolFatherJerry GruberHypertension FatherJerry GruberBirth DefectsMaternal Cousin 1Nraj Saldana arm stopped growing at elbowCancerMaternal Cousin 2Jerry ReckerRenal Cell CarcinomaLearning DisabilitiesMaternal Cousin 2Jerry ReckerWilliams SyndromeOsteoporosisMaternal GrandmotherDorothy MurphyStrokeMaternal GrandmotherDorothy MurphyAsthmaMother LindaDepressionMotherLindaDiabetesMotherLindaMigrainesMotherLindaOtherOther 1No family h/o ovarian cancer or DVT.OsteoporosisOther 2StrokeOther 2Hearing Loss Paternal AuntMaile Page at birthBreast CancerPaternal GrandmotherDonna MasonRelationNameStatusCommentsFatherJerry GruberDeceasedMaternal Cousin 1 Remy StantonAliveMaternal Cousin 2Jerry ReckerAliveMaternal GrandfatherDeceased Maternal GrandmotherDorothy MurphyDeceasedMotherLindaAliveOther 1OtherOther 2 AlivePaternal AuntKaren PowersAlivePaternal GrandfatherDeceasedPaternal GrandmotherDonna MasonAliveSisterAlivegood health Social History Tobacco UseTypesPacks/DayYears UsedDateSmoking Tobacco: NeverPassive Smoke Exposure: NeverSmokeless Tobacco: Never Tobacco Cessation:Counseling Given: Not Answered Alcohol UseStandard Drinks/WeekCommentsYes0 (1 standard drink = 0.6 oz pure alcohol)OccasionallyOverall Financial Resource Strain (CARDIA)AnswerDate RecordedHow hard is it for you to pay for the very basics like food, housing, medical care, and heating?Not hard at all06/09/2024HQ-2AnswerDate RecordedPHQ-9 Total Ivejg211PRAPARE - TransportationAnswerDate RecordedIn the past 12 months, has lack of transportation kept you from medical appointments or from getting medications?No02/04/2025In the past 12 months, has lack of transportation kept you from meetings, work, or from getting things needed for daily living?No02/04/2025Housing Stability Vital SignAnswerDate RecordedUnable to Pay for Housing in the Last YearNot on file06/09/2024Number of Places Lived in the Last YearNot on file06/09/2024In the last 12 months, was there a time when you did not have a steady place to sleep or slept in ashelter (including now)?No06/09/2024Housing Stability Vital SignAnswerDate RecordedIn the last 12 months, was there a time when you were not able to pay the mortgage or rent on time?No09/02/2025In the past 12 months, how many times have you moved where you were living?t any time in the past 12 months, were you homeless or living in a prison (including now)?No09/02/2025Hunger Vital SignAnswerDate RecordedWithin the past 12 months, you worried that your food would run out before you got the money to buymore.Never true09/02/2025Within the past 12 months, the food you bought just didn't last and you didn't have money to get more.Never true09/02/2025PRAPARE - TransportationAnswerDate RecordedIn the past 12 months, has lack of transportation kept you from medical appointments or from getting medications?No09/02/2025In the past 12 months, has lack of transportation kept you from meetings, work, or from getting things needed for daily living?No09/02/2025HC UtilitiesAnswerDate RecordedIn the past 12 months has the electric, gas, oil, or water company threatened to shut off services in your home?No09/02/2025Interpersonal Safety Domain Source: IP Abuse Screening AnswerDate RecordedPhysical kyvrpJuiqzn38/23/2025Verbal igpnqDsfcue51/23/2025 Emotional yhvzpVvwuzo99/23/2025Financial seslhSqxhjf87/23/2025Sexual abuseDenies 03/03/2025CommentsNoSex and Gender InformationValueDate RecordedSex Assigned at MvmhtKrnhxs15/15/2025 3:59 PM EDTLegal TwoWupzue41/10/2013 4:40 PM ESTGender IdentityNot on fileSexual OrientationNot on file Last Filed Vital Signs Vital SignReadingTime TakenCommentsBlood Uljmvubq913/7409/06/2025 1:35 PM EDT Igcix214909/06/2025 1:35 PM NXGLdcoxzvqebg84.9 ??C (98.5 ??F)09/06/2025 1:35 PM EDTRespiratory Sjxk1702 1:35 PM EDTOxygen Fiurrlskqy45%09/06/2025 1:35 PM EDTInhaled Oxygen Concentration--Nphzuz64.9 kg (178 lb 4.8 oz)09/06/2025 1:35 PM WFQDqullu896 cm (5' 3 )08/17/2025 11:32 AM EDTBody Mass Index31.5808/17/2025 11:32 AM EDT Plan of Treatment DateTypeDepartmentCare Team (Latest Contact Info)Ajjexwdugrm82/10/2025 8:00 AM ESTOffice Visit [facility] [place] [address] [place] [address] Bobby Valdez, RAIL PROJECT ENGINEER - HEALTH CENTER ASSISTANT [address] [place] [address] hospital f/u-migraines discharged 10/16/2502 12:30 AM ESTClinical Support [facility] Part of [address] [address] LINQ ktmynh8812/29/2025 1:45 PM ESTOffice Visit [facility] Part of [address] [place] [address] Debbie Penn, RAIL PROJECT ENGINEER - CNM [address] [facility] [facility] [place] [address] yubdes2103/08/2026 10:00 AM EDTOffice Visit [facility] [place] [address] [facility] [place] [address] Bobby Valdez, RAIL PROJECT ENGINEER - HEALTH CENTER ASSISTANT [address] [facility] [address] 6 month w a1c03/11/2026 1:40 PM EDTOffice Visit [facility] Part of [address] [place] [address] Arnold Hood MD [address] [place] [address] 6 monthHealth MaintenanceDue DateLast DoneCommentsSigmoidoscopy/CT colonography 2019FIT/FOBT: Average risk/Diabetic foot exam12/18/2025 12/18/2024, 08/10/2020, 05/13/2019, Additional history existsShingles vaccine (1 of 2)12/18/2025Postponed from 2024 (Patient Refused)A1C test (Diabetic or Prediabetic), 12/18/2024, 06/08/2024, Additional history existsDiabetic Alb to Cr ratio (uACR) test, 06/08/2024, 06/04/2023, Additional history existsGFR test (Diabetes, CKD 3-4, OR last GFR 15-59), 06/08/2024, 06/04/2023, Additional history exists Qtgqkp44, 06/08/2024, 06/04/2023, Additional history exists COVID-19 Vaccine ( season)/09/2022, 10/18/2021, 02/17/2021, Additional history existsPostponed from 07/12/2025 (Patient Refused) Depression Duklzujczx57/27/384472, 09/06/2025Flu vaccine (#1)09/06/2026 09/18/2023, 09/18/2022, 09/13/2021, Additional history existsPostponed from 06/11/2025 (Patient Refused)Hepatitis C pwutdx9609/06/2026Postponed from 1992 (Patient Refused)Diabetic retinal exam6001/15/2024, 01/15/2024, 01/15/2024, Additional history existsPostponed from 01/14/2025 (Not Indicated)Breast cancer nnbett28, 10/21/2023, 10/02/2022, Additional history existsFecal-DNA (Cologuard): Average risk/ DTaP/Tdap/Td vaccine (3 - Td or Tdap)/07/2022, 05/07/2008Colonoscopy 504/5Colorectal Cancer Mdxcdf3003/03/2035Hepatitis B vaccine Rstwbybvp05/19/2008, 2008, 04/29/2008HIV emdvqmGibkyxqze18/06/2017Cervical cancer screenDiscontinuedHPV (without or with Pap)Bzqbetphlzzu44/15/2018Pap nfpzwPttbmwoxyswo31/15/2018, 12/15/2014Pneumococcal 0-49 years Vaccine Jsuknylzsnbh65/07/2025, 10/14/2020Pneumococcal 50+ years VaccineCompleted 12/18/2024, 10/14/2020Hepatitis A vaccineAged OutNo longer eligible based on patient's age to complete this topicHib vaccineAged OutNo longer eligible based on patient's age to complete this topicMeningococcal (ACWY) vaccineAged OutNo longer eligible based on patient's age to complete this topicMeningococcal B vaccineAged OutNo longer eligible based on patient's age to complete this topic Polio vaccineAged OutNo longer eligible based on patient's age to complete this topic Medical Devices ImplantedTypeAreaManufacturerDevice IdentifierShelf Expiration DateModel / Serial / LotMonitor Crd 1.4 Cc 3.4 Gm Insertable Linq - [id number] Implanted:Qty: 1 on 03/19/2025 [facility] ChestMEDTRONIC CARDIAC RTHYM [id number] / [id number] / Procedures Procedure NamePriorityDate/TimeAssociated DiagnosisCommentsINTERROGATION EVALUATION REMOTE </30 D ILR TGWZzqvmja98/13/2025 Encounter for loop recorder check Syncope and collapse POC COVID-19, FLU A/DOkwhwlx30/23/2025 4:36 PM EDT Acute bronchitis, unspecified organism XHHYxwanhn17/22/2025 8:02 AM EDT Controlled type 2 diabetes mellitus without complication, with long-term current use of insulin ([facility]) BASIC METABOLIC RZTZUBkezayw91/22/2025 8:02 AM EDT Controlled type 2 diabetes mellitus without complication, with long-term current use of insulin ([facility]) HEMOGLOBIN E8EZzmkztm15/22/2025 8:02 AM EDT Controlled type 2 diabetes mellitus without complication, with long-term current use of insulin ([facility]) CBC WITH AUTO RFYFWTJWRSPAXwcngoc34/22/2025 8:01 AM EDT Controlled type 2 diabetes mellitus without complication, with long-term current use of insulin (HCC) HCQVmevsrc06/22/2025 8:01 AM EDT Controlled type 2 diabetes mellitus without complication, with long-term current use of insulin ([facility]) LIPID NWKQDRvrekig39/22/2025 8:01 AM EDT Controlled type 2 diabetes mellitus without complication, with long-term current use of insulin ([facility]) ALBUMIN/CREATININE RATIO, KHRWXGmdxlsy11/22/2025 8:01 AM EDT Controlled type 2 diabetes mellitus without complication, with long-term current use of insulin (HCC) IMPLANTABLE LOOP RECORDER UJWLHQSikhatz19/07/2025 Syncope and collapse Encounter for loop recorder check BALTA BRADLEY DIGITAL SCREEN DTPPAMPJUGnhphdl58/17/2024 9:42 AM EST Screening mammogram for breast cancer DIABETES EYE YYXRXbquxwb65/06/2024 8:42 AM ESTFECAL DNA COLORECTAL CANCER SCREENING (COLOGUARD)Kjjlbls1001/01/2024 6:45 PM EST Colon cancer screening BLOOD OCCULT STOOL UFIVSWSFSIGrwxsui84/20/2020 10:30 AM EDT Microcytic anemia Iron deficiency anemia, unspecified iron deficiency anemia type Iron malabsorption COMMUNICATIONS PROGRAMMER NYHDEBTTQkrrigk60/15/2018 9:06 AM EDT HUMAN PAPILLOMAVIRUS (HPV) DNA PROBE THIN PREP HIGH FZKRCwevxks67/15/2018 8:32 AM EDT HIV JDSVHFNeshqdc93/06/2017 9:30 AM EDT Wellness examination DIABETES FOOT WMPKHmcejzd43/27/2017 Type 2 diabetes mellitus without complication, without long-term current use of insulin (HCC) from Last 3 Months or Most Recently Relevant to Health Maintenance Results * INTERROGATION EVALUATION REMOTE </30 D ILR SYS (09/23/2025) Narrative Authorizing ProviderResult TypeResult StatusSteven [facility] MDPROCEDURE/MINOR SURGICAL ORDERABLESFinal Result * POC COVID-19, FLU A/B (09/02/2025 4:36 PM EDT)ComponentValueRef RangeTest MethodAnalysis TimePerformed AtPathologist WbhokepuxVBBE-EgA-2 RNA,(POC) Not-DetectedInfluenza A Antigen, POCNegativeNot DetectedInfluenza B Antigen, POCNegativeNot DetectedValid Internal Control, POCpresentLOT NUMBER POC [id number] and kit nameVeritorSpecimen (Source)Anatomical Location / LateralityCollection Method / VolumeCollection TimeReceived Time09/02/2025 4:36 PM EDT Narrative Authorizing ProviderResult TypeResult StatusBobby W Might RAIL PROJECT ENGINEER - CNPPOINT OF CARE TEST ORDERABLESFinal Result * AST (09/01/2025 8:02 AM EDT)ComponentValueRef RangeTest MethodAnalysis Time Performed AtPathologist LgedzbjtfCJT3567 - 35 U/L1 8:02 AM EDMART[facility] LABSpecimen (Source)Anatomical Location / Laterality Collection Method / VolumeCollection TimeReceived TimeBloodBLOOD SPECIMEN / Zhreblf6909/01/2025 8:02 AM EDT1 8:03 AM EDT Narrative Authorizing ProviderResult TypeResult StatusBreadam W Might RAIL PROJECT ENGINEER - CNPCHEMISTRY ORDERABLESFinal ResultPerforming OrganizationAddressCity/State/ZIP CodePhone Number [facility] [address] [place] [address], [facility] [phone] * (ABNORMAL) Hemoglobin A1C (09/01/2025 8:02 AM EDT)ComponentValueRef RangeTest MethodAnalysis TimePerformed AtPathologist SignatureHemoglobin A1C6.2(H)4.0 - 6.0 %09/01/2025 8:02 AM EDTMERCY LABORATORIESEstimated Avg Jnngtfw597zk/dL 09/01/2025 8:02 AM EDTMERCY LABORATORIESComment: The ADA and AACC recommend providing the estimated average glucose result to permit better patient understanding of their HBA1c result. Specimen (Source)Anatomical Location / LateralityCollection Method / Volume Collection TimeReceived TimeBloodBLOOD SPECIMEN / Idkhxfi3809/01/2025 8:02 AM EDT 09/01/2025 8:03 AM EDT Narrative Authorizing ProviderResult TypeResult StatusBreadam W Might RAIL PROJECT ENGINEER - CNPCHEMISTRY ORDERABLESFinal ResultPerforming OrganizationAddressCity/State/ZIP CodePhone Number [facility] [address] [place] [address], [facility] [phone] [address], [facility] [phone] * Basic Metabolic Panel (09/01/2025 8:02 AM EDT)ComponentValueRef RangeTest MethodAnalysis TimePerformed AtPathologist JgzpacsgrLhfwso612955 - 145 mmol/L 09/01/2025 8:02 AM [facility] LABPotassium4.03.7 - 5.3 mmol/L1 8:02 AM [facility] YKLIjyfehop13294 - 107 mmol/L1 8:02 AM [facility] YRVZV02564 - 31 mmol/L1 8:02 AM [facility] LABAnion Fqi545 - 16 mmol/L1 8:02 AM [facility] LLYQviizrj4190 - 99 mg/dL09/01/2025 8:02 AM [facility] ESHNNP092 - 20 mg/dL 09/01/2025 8:02 AM [facility] LABCreatinine0.80.50 - 0.90 mg/dL09/01/2025 8:02 AM [facility] LABEst, Glom Filt Rate >90>60 mL/min/1.90x58309/01/2025 8:02 AM [facility] Comment: ? These results are not intended for use in patients <18 years of age. ? eGFR results are calculated without a race factor using the 2020 CKD-EPI equation. Careful clinical correlation is recommended, particularly when comparing to results calculated using previous equations. The CKD-EPI equation is less accurate in patients with extremes of muscle mass, extra-renal metabolism of creatine, excessive creatine ingestion, or following therapy that affects renal tubular secretion. BUN/Creatinine Qmvwx300 - 8:02 AM [facility] LABCalcium8.88.6 - 10.4 mg/dL09/01/2025 8:02 AM [facility] LABSpecimen (Source)Anatomical Location / LateralityCollection Method / Volume Collection TimeReceived TimeBloodBLOOD SPECIMEN / Allpdyz8909/01/2025 8:02 AM EDT 09/01/2025 8:03 AM EDT Narrative Authorizing ProviderResult TypeResult StatusBrett W Might RAIL PROJECT ENGINEER - CNPCHEMISTRY ORDERABLESFinal ResultPerforming OrganizationAddressCity/State/ZIP CodePhone Number [facility] [address] [place] [id number], [facility] [phone] * (ABNORMAL) CBC with Auto Differential (09/01/2025 8:01 AM EDT)ComponentValue Ref RangeTest MethodAnalysis TimePerformed AtPathologist SignatureWBC6.93.5 - 11.3 k/uL09/01/2025 8:01 AM [facility] LABRBC4.873.95 - 5.11 m/uL09/01/2025 8:01 AM [facility] KYQPgfzcflfta16.3 11.9 - 15.1 g/dL09/01/2025 8:01 AM [facility] Hvgfaupmgr13.336.3 - 47.1 %09/01/2025 8:01 AM [facility] VWGXZW55.982.6 - 102.9 fL09/01/2025 8:01 AM [facility] YQTHVJ56.325.2 - 33.5 pg09/01/2025 8:01 AM [facility] MCHC31.428.4 - 34.8 g/dL09/01/2025 8:01 AM [facility] RDW15.2(H)11.8 - 14.4 %09/01/2025 8:01 AM [facility] Spnibhpfz601312 - 453 k/uL09/01/2025 8:01 AM [facility] OMOWZB77.78.1 - 13.5 fL09/01/2025 8:01 AM [facility] NRBC Automated0.00.0 per 100 WBC09/01/2025 8:01 AM [facility] LABNeutrophils %68(H)36 - 65 %09/01/2025 8:01 AM [facility] LABLymphocytes %21(L)24 - 43 %09/01/2025 8:01 AM [facility] LABMonocytes %83 - 12 %09/01/2025 8:01 AM [facility] LABEosinophils %21 - 4 %09/01/2025 8:01 AM [facility] LABBasophils %10 - 2 %09/01/2025 8:01 AM [facility] LABImmature Granulocytes %00 %09/01/2025 8:01 AM EDT [facility] LABNeutrophils Absolute4.701.50 - 8.10 k/uL 09/01/2025 8:01 AM [facility] LABLymphocytes Absolute1.46 1.10 - 3.70 k/uL09/01/2025 8:01 AM [facility] Monocytes Absolute0.520.10 - 1.20 k/uL09/01/2025 8:01 AM [facility] LABEosinophils Absolute0.100.00 - 0.44 k/uL09/01/2025 8:01 AM [facility] LABBasophils Absolute0.060.00 - 0.20 k/uL 09/01/2025 8:01 AM [facility] LABImmature Granulocytes Absolute<0.030.00 - 0.30 k/uL09/01/2025 8:01 AM [facility] LABSpecimen (Source)Anatomical Location / LateralityCollection Method / VolumeCollection TimeReceived TimeBloodBLOOD SPECIMEN / Jalzuyz6709/01/2025 8:01 AM EDT1 9:14 AM EDT Narrative Authorizing ProviderResult TypeResult StatusBrett W Might RAIL PROJECT ENGINEER - CNPHEMATOLOGY ORDERABLESFinal ResultPerforming OrganizationAddressCity/State/ZIP CodePhone Number [facility] [address] [place] [address], [facility] [phone] * Albumin/Creatinine Ratio, Urine (09/01/2025 8:01 AM EDT)ComponentValueRef RangeTest MethodAnalysis TimePerformed AtPathologist SignatureAlbumin Urine<12 0 - 20 mg/L1 8:01 AM EDTMERCY LABORATORIESCreatinine, Ur160.028.0 - 217.0 mg/dL09/01/2025 8:01 AM EDTMERCY LABORATORIESComment:Reference range defined for 1st morning urineMicroalb/Topstitcher Lockstitch. RatioCan not be calculated0.0 - 25.0 mcg/mg creat1 8:01 AM EDTMERCY LABORATORIESSpecimen (Source) Anatomical Location / LateralityCollection Method / VolumeCollection Time Received TimeUrine (Urine)09/01/2025 8:01 AM EDT1 8:02 AM EDT Narrative Authorizing ProviderResult TypeResult StatusBobby Valdez RAIL PROJECT ENGINEER - CNPURINE ORDERABLESFinal ResultPerforming OrganizationAddressCity/State/ZIP CodePhone Number [facility] [address] [place] [address], [facility] [phone] [phone] * ALT (09/01/2025 8:01 AM EDT)ComponentValueRef RangeTest MethodAnalysis Time Performed AtPathologist BknbuhkxkOJD0388 - 35 U/L1 8:01 AM [facility] LABSpecimen (Source)Anatomical Location / Laterality Collection Method / VolumeCollection TimeReceived TimeBloodBLOOD SPECIMEN / Uvofqqt8709/01/2025 8:01 AM EDT1 9:14 AM EDT Narrative Authorizing ProviderResult TypeResult StatusBobby Valdez RAIL PROJECT ENGINEER - CNPCHEMISTRY ORDERABLESFinal ResultPerforming OrganizationAddressCity/State/ZIP CodePhone Number [facility] [address] [place] [address], [facility] [phone] * (ABNORMAL) Lipid Panel (09/01/2025 8:01 AM EDT)ComponentValueRef RangeTest MethodAnalysis TimePerformed AtPathologist SignatureCholesterol, Bbvbb722(H)0 - 199 mg/dL09/01/2025 8:01 AM EDTMERCY LABORATORIESComment: Cholesterol Guidelines: <200 Desirable 200-240 ??Borderline >240 Undesirable HDL55>40 mg/dL09/01/2025 8:01 AM EDTMERCY LABORATORIESComment: HDL Guidelines: <40 Undesirable 40-59 ?Borderline >59 Desirable LDL Mzwupfuiydj890(H)0 - 100 mg/dL09/01/2025 8:01 AM EDTMERCY LABORATORIES Comment: LDL Guidelines: <100 Desirable 100-129 ?? Near to/above Desirable 130-159 ?? Borderline >159 Undesirable Direct (measured) LDL and calculated LDL are not interchangeable tests. Chol/HDL Ratio4.0<5.010 8:01 AM EDTMERCY HZPJRZGYRIFIFhnnhbytzsupx910 <150 mg/dL09/01/2025 8:01 AM EDTMERCY LABORATORIESComment: Triglyceride Guidelines: <150 Desirable 150-199 ??Borderline 200-499 ??High >499 Very high Based on AHA Guidelines for fasting triglyceride, August 2012. TDCT766 - 30 mg/dL09/01/2025 8:01 AM EDTMERCY LABORATORIESSpecimen (Source) Anatomical Location / LateralityCollection Method / VolumeCollection Time Received TimeBloodBLOOD SPECIMEN / Dbycnvv1309/01/2025 8:01 AM EDT1 8:02 AM EDT Narrative Authorizing ProviderResult TypeResult StatusBreadam Valdez RAIL PROJECT ENGINEER - CNPCHEMISTRY ORDERABLESFinal ResultPerforming OrganizationAddressCity/State/ZIP CodePhone Number [facility] [address] [place] [address], [facility] [phone] [place] [address], [facility] [phone] * IMPLANTABLE LOOP RECORDER SYSTEM (08/17/2025) Narrative Authorizing ProviderResult TypeResult StatusStgeorgina Hood MDCARDIAC SERVICES ORDERABLESFinal Result * BALTA BRADLEY DIGITAL SCREEN BILATERAL (10/27/2024 9:42 AM EST)Anatomical Region LateralityModalityBreastBilateralMammographySpecimen (Source)Anatomical Location / LateralityCollection Method / VolumeCollection TimeReceived Time 10/27/2024 6:05 PM EST Impressions 10/27/2024 6:06 PM EST No evidence of malignancy either breast. Advise annual screening mammography. Breast tissue can be either dense or not dense. Dense tissue makes it harder to find breast cancer on a mammogram and also raises the risk of developing breast cancer. Your breast tissue is NOT DENSE. Talk to your health care provider about breast density, risk for breast cancer and your individual situation. BI-RADS 1 BIRADS: BIRADS - CATEGORY 1 Negative, no evidence of malignancy. ??Normal interval follow-up is recommended in 12 months. OVERALL ASSESSMENT - NEGATIVE A letter of notification will be sent to the patient regarding the results. The [employer] recommends annual mammograms for women 40 years and older. Performing Facility: [place] [address] Narrative 10/27/2024 6:06 PM EST EXAMINATION: SCREENING DIGITAL BILATERAL MAMMOGRAM WITH TOMOSYNTHESIS, 10/27/2024 TECHNIQUE: Screening mammography was performed with tomosynthesis including MLO and CC views of the bilateral breasts. Computer aided detection was used for the interpretation of this exam. COMPARISON: 21 October 2023; 02 October 2022 HISTORY: Screening. No family history of breast cancer. ??6 year history of HRT therapy. ??No breast interventions. ??TC score 8.25. FINDINGS: Bilateral breasts are composed of scattered fibroglandular density. ??No skin thickening, nipple contour changes, suspicious calcifications, suspicious masses, areas of architectural distortion or significant interval changes are noted. Authorizing ProviderResult TypeResult StatusSusan Pia Penn RAIL PROJECT ENGINEER - CNMIMG MAMMOGRAPHY ORDERABLESFinal Result * DIABETES EYE EXAM (01/15/2024 8:42 AM EST) Narrative Authorizing ProviderResult TypeResult StatusHistorical Provider [facility] MAINTENANCEFinal Result * Cologuard (Fecal DNA Colorectal Cancer Screening) (01/01/2024 6:45 PM EST) ComponentValueRef RangeTest MethodAnalysis TimePerformed AtPathologist SignatureFIT-DNA (Cologuard)SkgonajxUmwstrmi13/04/2024 12:29 AM [employer] (CLIA #:[id number])Comment: NEGATIVE TEST RESULT. A negative Cologuard result indicates a low likelihood that a colorectal cancer (CRC) or advanced adenoma (adenomatous polyps with more advanced pre-malignant features) ??is present. The chance that a person with a negative Cologuard test has a colorectal cancer is less than 1in 1500 (negative predictive value >99.9%) or has an advanced adenoma is less than 5.3% (negative predictive value 94.7%). These data are based on a prospective cross-sectional study of 10,000individuals at average risk for colorectal cancer who were screened with both Cologuard and colonoscopy. (Svetlana Terry et al, N Engl J Med 2014;370(14):3208-9473) The normal value (reference range) for this assay is negative. COLOGUARD RE-SCREENING RECOMMENDATION: Periodic colorectal cancer screening is an important part ofpreventive healthcare for asymptomatic individuals at average risk for colorectal cancer. ??Following a negative Cologuard result, the [place] [employer] and U.S. Multi-Society Task Force screening guidelines recommend a Cologuard re-screening interval of 3 years. References: [place] [employer] Guideline for Colorectal Cancer Screening: https://www.cancer.or g/cancer/xapfs-bvzxdo-qcbdcm/jstkcdgoe-twoucyfei-rcexelz/acs-recommendations.htm l.; Stiven LOPES, Azar ALAN, Bjorn PalomaresK, Colorectal Cancer Screening: Recommendations for Physicians and Patients from the U.S. Multi-Society Task Force on Colorectal Cancer Screening , Am J Gastroenterology 2017; 112:6016-5688. TEST DESCRIPTION: Composite algorithmic analysis of stool DNA-biomarkers with hemoglobin immunoassay. ?? Quantitative values of individual biomarkers are not reportable and are not associated with individual biomarker result reference ranges. Cologuard is intended for colorectal cancer screening ofadults of either sex, 45 years or older, who are at average-risk for colorectal cancer (CRC). Cologuard has been approved for use by the U.S. FDA. The performance of Cologuard was established in a cross sectional study of average-risk adults aged 50-84. Cologuard performance in patients ages 45 to 49 years was estimated by sub-group analysis of near-age groups. Colonoscopies performed for a positive result may find as the most clinically significant lesion: colorectal cancer [4.0%], advanced adenoma (including sessile serrated polyps greater than or equal to 1cm diameter) [20%] or non- advanced adenoma [31%]; or no colorectal neoplasia [45%]. These estimates are derived from a prospective cross-sectional screening study of 10,000 individuals at average risk for colorectal cancer who were screened with both Cologuard and colonoscopy. (Svetlana Cano al, N Engl J Med 2014;370(14):8885-2732.) Cologuard may produce a false negative or false positive result (no colorectal cancer or precancerous polyp present at colonoscopy follow up). A negative Cologuard test result does not guarantee the absence of CRC or advanced adenoma (pre-cancer). The current Cologuard screening interval is every 3 years. ([place] [employer] and U.S. Multi-Society Task Force). Cologuard performance data in a 10,000 patient pivotal study using colonoscopy as the reference method can be accessed at the following location: www.[employer]/results. Additional description of the Cologuard test process, warnings and precautions can be found at www.cologuard.com. Specimen (Source)Anatomical Location / LateralityCollection Method / Volume Collection TimeReceived TimeFeces (substance)STOOL SPECIMEN / Vciqaov6301/01/2024 6:45 PM EST01/02/2024 12:47 PM EST Narrative Authorizing ProviderResult TypeResult StatusBrett W Might RAIL PROJECT ENGINEER - CNPMICROBIOLOGY - GENERAL ORDERABLESFinal ResultPerforming OrganizationAddressCity/State/ZIP CodePhone Number [employer] (CLIA #:[id number]) [address] [place] [id number] [phone] * Blood Occult Stool #1 (04/30/2020 10:30 AM EDT)ComponentValueRef RangeTest MethodAnalysis TimePerformed AtPathologist SignatureOccult Blood, Stool #1 IBCCNVJRVAIMLION05/20/2020 10:30 AM [facility] LABDate, Stool #[id number]/20/2020 10:30 AM [facility] LABTime, Stool #1.URINE04/30/2020 10:30 AM [facility] LABOccult Blood, Stool #7GMAORYTDLJJXQDXZ90/20/2020 10:30 AM [facility] LABDate, Stool #[id number]/20/2020 10:30 AM [facility] LABTime, Stool #2.URINE04/30/2020 10:30 AM [facility] LABOccult Blood, Stool #5KNFOTZIRMULZNUAP09/20/2020 10:30 AM [facility] LABDate, Stool #36,202,2341204/30/2020 10:30 AM [facility] LABTime, Stool #3.URINE04/30/2020 10:30 AM [facility] LABSpecimen (Source)Anatomical Location / Laterality Collection Method / VolumeCollection TimeReceived TimeSTOOL SPECIMEN / Unknown 04/30/2020 10:30 AM EDT05/02/2020 10:30 AM EDT Narrative Authorizing ProviderResult TypeResult StatusMohamchandrakant Vasquez MDBODY FLUIDS AND STOOLS ORDERABLESFinal ResultPerforming OrganizationAddressCity/State/ZIP Code Phone Number [facility] [address] [phone] * COMMUNICATIONS PROGRAMMER Cytology (03/25/2018 9:06 AM EDT)ComponentValueRef RangeTest Method Analysis TimePerformed AtPathologist SignatureCytology Report(NOTE) [id number] [facility] ??LABORATORIES CONSULTING PATHOLOGISTS [facility] ANATOMIC PATHOLOGY [address] [place] [address]. ??[place], [place] [address] GYNECOLOGIC CYTOLOGY REPORT Patient Name: ASHLEY FERNANDES MR#: [id number] Specimen #[id number] Source: 1: Cervical material, (ThinPrep vial, Imaging-assisted review) Clinical History Z01.419 Routine suction plate roller hand exam without abnormal findings Co-Test: ??ThinPrep Pap with high risk HPV testing LMP: ??ablation - 2008 INTERPRETATION Cervical material, (ThinPrep vial, Imaging-assisted review): Specimen Adequacy: ?Satisfactory for evaluation. ?- Endocervical/transformation zone component present. ?- Partially obscuring exudate. Descriptive Diagnosis: ?Negative for intraepithelial lesion or malignancy. Fungal organisms morphologically consistent with Donna species. Comments: ?High Risk HPV testing was ordered. Car Salter: ?? KARLIE Young(ASCP) Electronically Signed Out cd/04/19/2018 Procedure/Addendum HPV Procedure Report ? Date Ordered: ? 03/26/2018 ? Status: Signed Out ?Date Complete: ? 03/26/2018 ? By: C. Deca, CT(ASCP) ?Date Reported: ? 04/19/2018 ? INTERPRETATION Oanh HPV DNA High Risk ? HPV Sample ? Thin Prep ?(Ref Range) HPV Type 16 ? Not Detected ?(Not Detected) HPV Type 18 ? Not Detected ?(Not Detected) Other High Risk HPV ? Not Detected ?(Not Detected) ??This test amplifies and detects DNA of 14 high-risk HPV types associated with cervical cancer and its precursor lesions (HPV types 16, 18, 31, 33, 35, 39, 45, 51, 52, 56, 58, 59, 66, and 68). Sensitivity may be affected by specimen collection methods, stage of infection, and the presence of interfering substances. ??Results should be interpreted in conjunction with other available laboratory and clinical data. ??A negative high-risk HPV result does not exclude the possibility of future cytologic HSIL or underlying CIN2-3 or cancer. This test is intended for medical purposes only and is not valid for the evaluation of suspected sexual abuse or for other forensic purposes. ??04/19/2018 12:00 AM EDTMERCAngélica LABORATORIESSpecimen (Source)Anatomical Location / LateralityCollection Method / VolumeCollection TimeReceived Time03/25/2018 9:06 AM EDT05/ 9:06 AM EDT Narrative Authorizing ProviderResult TypeResult StatusSusan Pia Penn APRN - CARMEN PATHOLOGY/CYTOLOGY ORDERABLESEdited Result - FinalPerforming OrganizationAddress City/State/ZIP CodePhone Number [facility] [address] [place] [address], [facility] [phone] [address], [facility] [phone] * Human papillomavirus (HPV) DNA probe thin prep high risk (03/25/2018 8:32 AM EDT)ComponentValueRef RangeTest MethodAnalysis TimePerformed AtPathologist SignatureHPV SOURCECERVICAL LCHSFRFD41/16/2018 8:33 AM EDTMCascade Technologies HPV Sample.THIN PREP03/26/2018 8:33 AM EDTMERCY LABORATORIESHPV, Genotype 16 Not FmafecdsDBHBXT00/16/2018 2:32 PM EDTMERCY LABORATORIESHPV, Genotype 18Not XstjxtzbQNAAAI78/16/2018 2:32 PM EDTMERCY LABORATORIESHPV, High Risk OtherNot TiijkhfrUKNRYJ53/16/2018 2:32 PM EDTMERCY LABORATORIESHPV, Interpretation 03/26/2018 2:32 PM EDTMERCY LABORATORIESComment: This test amplifies and detects DNA of 14 high-risk HPV types associated with cervical cancer and its precursor lesions (HPV types 16,18, 31, 33, 35, 39, 45, 51, 52, 56, 58, 59, 66, and 68). ? Sensitivity may be affected by specimen collection methods, stage of infection, and the presence of interfering substances. Results should be interpreted in conjunction with other available laboratory and clinical data. A negative high-risk HPV result does not exclude the possibility of future cytologic HSIL or underlying CIN2-3 or cancer. ? This test is intended for medical purposes only and is not valid for the evaluation of suspected sexual abuse or for other forensic purposes. Performed at [address] [address] Specimen (Source)Anatomical Location / LateralityCollection Method / Volume Collection TimeReceived Time03/25/2018 8:32 AM EDT03/26/2018 8:32 AM EDT Narrative Authorizing ProviderResult TypeResult StatusSusan Pia Penn RAIL PROJECT ENGINEER - CNM HEMATOLOGY ORDERABLESFinal ResultPerforming OrganizationAddressCity/State/ZIP CodePhone Number [facility] [address] [place] [address] [phone] [phone] * HIV Screen (05/16/2017 9:30 AM EDT)ComponentValueRef RangeTest MethodAnalysis TimePerformed AtPathologist SignatureHIV Ag/KpSGXDUQCGKXGOJ84/06/2017 8:45 PM EDTMHPN LABComment: ? No laboratory evidence of HIV infection. ??If acute HIV infection is suspected, consider testing for HIV-1 RNA. This is an FDA approved immunoassay that detects HIV-1 and HIV-2 antibodies and HIV-1 p24 antigen to screen for infection with HIV-1 or HIV-2. Performed at [address] [address] ([phone] Specimen (Source)Anatomical Location / LateralityCollection Method / Volume Collection TimeReceived TimeBLOOD SPECIMEN / Mrtnnrr6205/16/2017 9:30 AM EDT 05/16/2017 9:31 AM EDT Narrative Authorizing ProviderResult TypeResult StatusMark Med Palacio MDIMMUNOLOGY ORDERABLESFinal ResultPerforming OrganizationAddressCity/State/ZIP CodePhone Number [facility] [address] [place] [address] [phone] [facility] * DIABETES FOOT EXAM (05/07/2017) Narrative Authorizing ProviderResult TypeResult StatusMark Med Palacio MDHEALTH MAINTENANCEFinal Result from Last 3 Months or Most Recently Relevant to Health Maintenance Insurance Advance Directives * Full Code (Latest Code Status on File) Date ActivatedDate InactivatedComments03/19/2025 8:31 AM03/19/2025 11:34 AM * Full Code Date ActivatedDate InactivatedComments03/19/2025 8:16 AM03/19/2025 8:31 AM * Full Code Date ActivatedDate InactivatedComments07/24/2021 5:18 PM07/26/2021 12:52 PM * Full Code Date ActivatedDate InactivatedComments03/02/2019 6:24 AM03/02/2019 3:10 PM * Full Code Date ActivatedDate InactivatedComments05/18/2016 1:26 AM05/18/2016 10:32 PM NameRelationshipHealthcare Agent RelationshipCommunicationRob OchierSpouse Primary Decision Maker* Care Teams Team MemberRelationshipSpecialtyStart DateEnd Date Bobby Valdez, RAIL PROJECT ENGINEER - HEALTH CENTER ASSISTANT PCP - GeneralFamily Nurse Bzgtijehsmas79/17/19
--- OUTSIDE RECORDS SUMMARY | 2025-10-15 13:55 | XMS_ITS | Encounter Summary ---
Author Organization [facility] Address [address], [address] [place] [address] Care Team Providers Care Service Writer Advisor Name Role Phone Bobby Valdez APRN, CNP Primary Care Provider Encounter Details DateTypeDepartmentCare Team (Latest Contact Info)Naesdpsthdh25/05/2025bstract [facility] [address] [place] [address] Bobby Valdez APRN - CNP [address] [place] [address] Social History Tobacco UseTypesPacks/DayYears UsedDateSmoking Tobacco: NeverPassive Smoke Exposure: NeverSmokeless Tobacco: NeverAlcohol UseStandard Drinks/WeekComments Yes0 (1 standard drink = 0.6 oz pure alcohol)OccasionallyOverall Financial Resource Strain (CARDIA)AnswerDate RecordedHow hard is it for you to pay for the very basics like food, housing, medical care, and heating?Not hard at all 4PHQ-2AnswerDate RecordedPHQ-9 Total Jusqt526PRAPARE - TransportationAnswerDate RecordedIn the past 12 months, has lack of transportation kept you from medical appointments or from getting medications?No 02/04/2025In the past 12 months, has lack of transportation kept you from meetings, work, or from getting things needed for daily living?No02/04/2025 Housing Stability Vital SignAnswerDate RecordedUnable to Pay for Housing in the Last YearNot on file06/09/2024Number of Places Lived in the Last YearNot on file 06/09/2024In the last 12 months, was there a time when you did not have a steady place to sleep or slept in ashelter (including now)?No06/09/2024Housing Stability Vital SignAnswerDate RecordedIn the last 12 months, was there a time when you were not able to pay the mortgage or rent on time?No09/02/2025In the past 12 months, how many times have you moved where you were living? At any time in the past 12 months, were you homeless or living in a fpc (including now)?No09/02/2025Hunger Vital SignAnswerDate RecordedWithin the past [...] you from medical appointments or from getting medications?No 09/02/2025In the past 12 months, has lack of transportation kept you from meetings, work, or from getting things needed for daily living?No09/02/2025HC UtilitiesAnswerDate RecordedIn the past 12 months has the electric, gas, oil, or water company threatened to shut off services in your home?No09/02/2025 Interpersonal Safety Domain Source: IP Abuse ScreeningAnswerDate Recorded Physical wkynpAzzwtb74/23/2025Verbal pahteWyqvfq25/23/2025Emotional abuseDenies 03/03/2025Financial leexwXojhqe84/23/2025Sexual bwdefOywton96/23/2025 CommentsNoSex and Gender InformationValueDate RecordedSex Assigned at Oavvch4402/23/2025 3:59 PM EDTLegal UvwKkkveh34/10/2013 4:40 PM ESTGender Identity Not on fileSexual OrientationNot on filedocumented as of this encounter Plan of Treatment DateTypeDepartmentCare Team (Latest Contact Info)Qmehkenxbvy58/10/2025 8:00 AM ESTOffice Visit [facility] [address] [place] [phone] Bobby Valdez, PARKING PATROLLER - SANITATION OFFICER [address] [place] [address] hospital f/u-migraines discharged 10/16/2502 12:30 AM ESTClinical Support [facility] [address] [phone] LINQ mfdapp2712/29/2025 1:45 PM ESTOffice Visit [facility]YNEC[facility] [place] [phone] Debbie Penn, PARKING PATROLLER - [address] [phone] kgymuy4103/08/2026 10:00 AM EDTOffice Visit [facility] [address] [place] [phone] Bobby Valdez PARKING PATROLLER - SANITATION OFFICER [address] [place] [address] 6 month w a1c03/11/2026 1:40 PM EDTOffice Visit [facility] Part [address] [phone] Arnold Hood MD [address] [place] [address] [phone] 6 monthdocumented as of this encounter Visit Diagnoses Not on filedocumented in this encounter Care Teams Team MemberRelationshipSpecialtyStart DateEnd Date Bobby Valdez W, PARKING PATROLLER - SANITATION OFFICER PCP - GeneralFamily Nurse Vayalriuaivk46/17/19documented as of this encounter
--- OUTSIDE RECORDS SUMMARY | 2025-10-15 13:55 | XMS_ITS | Encounter Summary ---
Author Organization [facility] Address [address], [address] [place] [address] Care Team Providers Care Corporate Safety Director Name Role Phone Bobby Valdez APRN, CNP Primary Care Provider Encounter Details DateTypeDepartmentCare Team (Latest Contact Info)Tbplvyoqckz64/05/2025bstract [facility] [address] [place] [address] Bobby Valdez APRN - CNP [address] [place] [address] Social History Tobacco UseTypesPacks/DayYears UsedDateSmoking Tobacco: NeverPassive Smoke Exposure: NeverSmokeless Tobacco: NeverAlcohol UseStandard Drinks/WeekComments Yes0 (1 standard drink = 0.6 oz pure alcohol)OccasionallyOverall Financial Resource Strain (CARDIA)AnswerDate RecordedHow hard is it for you to pay for the very basics like food, housing, medical care, and heating?Not hard at all 4PHQ-2AnswerDate RecordedPHQ-9 Total Hfagn000PRAPARE - TransportationAnswerDate RecordedIn the past 12 months, [...] were you homeless or living in a fdc (including now)?No09/02/2025Hunger Vital SignAnswerDate RecordedWithin the past [...] Domain Source: IP Abuse ScreeningAnswerDate Recorded Physical moczzHljgmf87/23/2025Verbal olhpsRlynzp25/23/2025Emotional abuseDenies 03/03/2025Financial zlmoeFbwlor98/23/2025Sexual efsseWdgxjb32/23/2025 CommentsNoSex and Gender InformationValueDate RecordedSex Assigned at Ntdndb7702/23/2025 3:59 PM EDTLegal WkvOxvlds64/10/2013 4:40 PM ESTGender Identity Not on fileSexual OrientationNot on filedocumented as of this encounter Plan of Treatment DateTypeDepartmentCare Team (Latest Contact Info)Zbplcxghmri77/10/2025 8:00 AM ESTOffice Visit [facility] [address] [place] [phone] Bobby Valdez, TOWN ADMINISTRATOR - RN CHRONIC [address] [place] [address] hospital f/u-migraines discharged 10/16/2502 12:30 AM ESTClinical Support [facility] CARDIOLOGY [address] [phone] LINQ wujyoc6112/29/2025 1:45 PM ESTOffice Visit [facility] OB[facility] & [facility]YNECOLOGY Part [place] [phone] Debbie Penn, TOWN ADMINISTRATOR - [address] [phone] axlmqc5103/08/2026 10:00 AM EDTOffice Visit [facility] [address] [place] [phone] Bobby Valdez TOWN ADMINISTRATOR - RN CHRONIC [address] [place] [address] 6 month w a1c03/11/2026 1:40 PM EDTOffice Visit [facility] CARDIOLOGY Part [address] [phone] Arnold Hood MD [address] [place] [phone] 6 monthdocumented as of this encounter Visit Diagnoses Not on filedocumented in this encounter Care Teams Team MemberRelationshipSpecialtyStart DateEnd Date Bobby Valdez W, TOWN ADMINISTRATOR - RN CHRONIC PCP - GeneralFamily Nurse Tofthzrwupst25/17/19documented as of this encounter
--- OUTSIDE RECORDS SUMMARY | 2025-10-15 13:55 | XMS_ITS | Encounter Summary ---
Author Organization [facility] Address [address], [address] [place] [address] Care Team Providers Care Kitchen Porter Name Role Phone Bobby Valdez APRN, CNP Primary Care Provider Encounter Details DateTypeDepartmentCare Team (Latest Contact Info)Wrwiequqqaz71/05/2025bstract [facility] [place] [address] [place] [address] Bobby Valdez APRN - CNP [address] [place] [address] Social History Tobacco UseTypesPacks/DayYears UsedDateSmoking Tobacco: NeverPassive Smoke Exposure: NeverSmokeless Tobacco: NeverAlcohol UseStandard Drinks/WeekComments Yes0 (1 standard drink = 0.6 oz pure alcohol)OccasionallyOverall Financial Resource Strain (CARDIA)AnswerDate RecordedHow hard is it for you to pay for the very basics like food, housing, medical care, and heating?Not hard at all 4PHQ-2AnswerDate RecordedPHQ-9 Total Hmpgf113PRAPARE - TransportationAnswerDate RecordedIn the past 12 months, [...] were you homeless or living in a senior care (including now)?No09/02/2025Hunger Vital SignAnswerDate RecordedWithin the past [...] Domain Source: IP Abuse ScreeningAnswerDate Recorded Physical cgxspDhyggm69/23/2025Verbal isjdaPrcfyq58/23/2025Emotional abuseDenies 03/03/2025Financial sbhgePeczuk53/23/2025Sexual gvgmxWizaez82/23/2025 CommentsNoSex and Gender InformationValueDate RecordedSex Assigned at Jjyevj6902/23/2025 3:59 PM EDTLegal LgwMyeyik87/10/2013 4:40 PM ESTGender Identity Not on fileSexual OrientationNot on filedocumented as of this encounter Plan of Treatment DateTypeDepartmentCare Team (Latest Contact Info)Xxaxexhgqrl36/10/2025 8:00 AM ESTOffice Visit [facility] [address] [place] [phone] Bobby Valdez, ROCK CRUSHER - PSYCH ARNP [address] [place] [address] hospital f/u-migraines discharged 10/16/2502 12:30 AM ESTClinical Support [facility] CARDIOLOG[facility] [address] [phone] LINQ kcbmyc5512/29/2025 1:45 PM ESTOffice Visit [facility] OBST[facility] & GYNECOLOGY Part [place] [phone] Debbie Penn, ROCK CRUSHER - [address] [phone] rlmuvu8403/08/2026 10:00 AM EDTOffice Visit [facility] [address] [place] [phone] Bobby Valdez ROCK CRUSHER - PSYCH ARNP [address] [place] [address] 6 month w a1c03/11/2026 1:40 PM EDTOffice Visit [facility] CARD[facility]OLOG[facility] Part [address] [phone] Arnold Hood MD [address] [place] [address] [phone] 6 monthdocumented as of this encounter Visit Diagnoses Not on filedocumented in this encounter Care Teams Team MemberRelationshipSpecialtyStart DateEnd Date Bobby Valdez W, ROCK CRUSHER - PSYCH ARNP PCP - GeneralFamily Nurse Eiwfktxumxig43/17/19documented as of this encounter
--- NOTE | 2025-10-15 14:19 | CM.NOTE ---
CM updated pt on neurology appointment will need to be scheduled on Saturday. Pt will receive a call for appointment date and time.
[2025-10-15 20:15] LABS: Glucose Urine UA NEGATIVE (NEGATIVE)
[2025-10-15 20:21] LABS: Cast Seen? NONE SEEN #/LPF (NONE SEEN); Crystals Seen? None Seen #/HPF (None Seen); Urine Culture Indicated NO
[2025-10-15] MEDS: TOPIRAMATE 100 MG TABLET PO (21:19)
[2025-10-15] MEDS: ATORVASTATIN CALCIUM 40 MG TABLET 80 MG PO (21:19)
--- NOTE | 2025-10-15 21:23 | CA_ITS ---
Patient Name: MARCIE SINCLAIR MR#: [id number] : 1975 Exam Date: 10/15/2025 Ordering Doctor: JULIANE CARPENTER ECHOCARDIOGRAM REPORT PROCEDURE: CA ECHO DOPPLER COMPLETE INDICATIONS: TIA, Blurred vision, Dizziness COMPARISON: None. DESCRIPTION: COMPLETE ECHOCARDIOGRAM Real-time transthoracic echocardiography with 2D, M-mode, spectral and color flow Doppler performed. QUALITY: Technical quality was good. LEFT VENTRICLE: Normal chamber size. Normal left ventricular wall thickness. Global left ventricular systolic function is normal. Visual estimation of left ventricular ejection fraction is 65%. LV EF: Normal left ventricular ejection fraction, (>55%). DIASTOLIC: Normal diastolic function. ATRIAL SEPTUM: Not well visualized. LEFT ATRIUM: Normal chamber size. RIGHT ATRIUM: Normal chamber size. RIGHT VENTRICLE: Normal chamber size. Normal right ventricular systolic function. TRICUSPID VALVE: Normal mobility and thickness. No stenosis with trivial regurgitation. No evidence of pulmonary hypertension. The RVSP is estimated at 18 mmHg. MITRAL VALVE: Normal mobility and thickness. No evidence of mitral valve stenosis. There is no mitral annular calcification. No mitral regurgitation. AORTIC VALVE: Normal trileaflet appearance. No visible sclerosis. Normal leaflet mobility. No evidence of aortic valve stenosis. No aortic regurgitation. AORTIC ROOT: Normal diameter and appearance. The aortic root measures 2.9 cm. The ascending aorta is normal in size measuring 2.4 cm. PULMONIC VALVE: Normal thickness and mobility. No stenosis. Trivial regurgitation. PERICARDIUM: No evidence of pericardial effusion. IVC: Not well visualized. PLEURA: CONCLUSION: 1. Normal left ventricular size and systolic function. Estimated LVEF is 65%. 2. Normal right ventricular size and systolic function. 3. Normal diastolic function. 4. No significant valvular dysfunction. 5. Normal right-sided pressures. Adult Echocardiography Procedure Report Left Ventricle LVEDD (3.7 - 5.6 cm): 3.62 cm LVESD (2.2 - 4.0 cm): 2.58 cm LVIVS thickness (0.6 - 1.2 cm): 0.85 cm LVPW thickness (0.5 - 1.0 cm): 0.85 cm e': 0.12 m/s E - e': 5.11 LVOT Max Gradient: 3.20 mm[Hg] LVOT Area (cm2): 0.89 m/s Peak Velocity (LVOT): 0.89 m/s Mean Velocity (LVOT): 0.52 m/s LVOT Diameter 2.20 cm Left Ventricular Ejection Fraction: 65 % Left Atrium LA Volume Index (2D A2C): 24.14 ml/m2 Left Atrium Systolic Dimension: 3.89 cm Mitral Valve MV E to A Ratio: 0.93 Mitral Valve A-Wave Peak Velocity: 0.68 m/s Mitral Valve E-Wave Peak Velocity: 0.63 m/s Right Ventricle RV Internal Diastolic Dimension: 4.24 cm Aorta AO Root Diam: 2.86 cm Ascending Ao Diam: 2.44 cm Aortic Valve AoV Area (Peak Gino): 3.67 cm2, 3.67 cm2 AoV Area (VTI): 3.89 cm2, 3.89 cm2 Peak Velocity(Antegrade Flow): 0.92 m/s Peak Gradient(Antegrade Flow): 3.41 mm[Hg] Mean Velocity(Antegrade Flow): 0.62 m/s Mean Gradient(Antegrade Flow): 1.75 mm[Hg] Velocity Time Integral: 19.39 cm Tricuspid Valve Peak Velocity (Regurgitant Flow): 1.91 m/s, 1.87 m/s Pulmonic Valve Peak Velocity: 0.71 m/s Peak Gradient: 1.74 mm[Hg], 2.35 mm[Hg] Right Atrium Right Atrium Systolic Pressure: 29.43 ml, 29.43 ml Dictated by: Bravo Ray M.D. on 10/15/2025 at 18:35 Approved by: Bravo Ray M.D. on 10/15/2025 at 18:38
[2025-10-16] VITALS (10 sets, daily range): BP systolic 97–112; BP diastolic 61–71; PULSE 50–90; TEMP 36.6–36.8; O2SAT 95–98
[2025-10-16] MEDS: MIDODRINE HCL 5 MG TABLET PO (09:26)
[2025-10-16] MEDS: LINAGLIPTIN 5 MG TABLET PO (09:26)
[2025-10-16] MEDS: SERTRALINE HCL 50 MG TABLET 150 MG PO (09:26)
[2025-10-16] MEDS: ASPIRIN 325 MG TABLET.DR PO (09:26)
--- NOTE | 2025-10-16 09:57 | P.DS_ITS ---
DS: Providers Provider Date of admission: 10/14/25 21:23 Primary care physician: CYNDIE CANALES NP Consults: 10/14/25 21:23 Occupational Therapy Eval and Treat Routine Reason for consultation: TIA Physical Therapy Eval and Treat Routine Reason for consultation: TIA Speech Therapy Eval and Treat Routine Reason for consultation: TIA 10/15/25 Consult to TeleNeurology Routine Reason for consultation: aphasia,blurred vision DS: Diagnosis Discharge Diagnosis (1) TIA (transient ischemic attack): Plan As listed above, below and others that are not listed DS: Summary Hospital Course Hospital Course: Mrs. Fernandes is a 50-year-old female who came in with expressive aphasia and subtle left arm weakness. She was found to have the following: Transient ischemic attack is suspected versus atypical migraine as per neurology. Blurry and double vision have resolved. Patient continues to have nystagmus and subtle slow expressive aphasia. Patient did not qualify for thrombolysis or thrombectomy. CT head, CTA head and neck are negative. I started patient on aspirin and Lipitor 80 mg daily. I requested A1c which came back slightly elevated at 6.2. I requested MRI of the brain with and without contrast to confirm and/or rule out ischemic injury versus other possible etiologies such as brain occupying lesion, edema, demyelination and others. MRI is negative Echocardiogram is unremarkable. No cardiomyopathy or valvular disease Lipid panel showed LDL 119 and HDL at 52. Patient was seen by neurology team who felt that the patient had atypical migraine. They recommended continuation of Topamax and for patient to follow-up with neurology in the outpatient setting. Patient had tried Imitrex in the past but no longer. I will discharge patient on baby aspirin for stroke prevention given her increased risk having stroke in the setting of diabetes and having a migraine As migraine increases risk of ischemic stroke. In addition, the patient is on estrogen patch that also could increase her risk having vascular issues. Diabetes A1c 6.3 Patient is on sitagliptin. May need to add another agent. To be done in the outpatient setting. Chronic headache for which patient is on Topamax Depression anxiety for which patient is on sertraline Chronic hypotension for which patient is on midodrine DVT prophy Lovenox subcu injection. Patient has few medical issues as listed above and others that are not listed. All appear to be stable. Complete resolution of her symptoms. Patient is ready physically and psychologically to go home. At this time, I do not have any clear or strong clinical justification to extend inpatient hospitalization. Patient however will require close and frequent monitoring as well as additional work-up, investigation and therapeutic intervention that could take place from this point on post discharge. That is to prevent relapse, decompensation, rehospitalization and other medical implications. Discharge medications as listed are not final or set in stone. Primary care doctor and other out patient providers will need to titrate and adjust medications as soon as the first post discharge visit based on clinical progression, vitals signs, volume status and other related organs function. I instructed patient to ask her primary care doctor to obtain [facility] record entirely to address abnormalities seen on labs and imaging that I have and have not addressed during this hospitalization, follow-up on pending blood work, imaging and pathology is if available and to follow-up on needed medical care in the outpatient setting. Time Spent with Patient Time attestation: Total time spent providing and/or coordinating discharge services: Exam Narrative Exam Narrative: [pt is awake and alert. oriented to place, time and person HEENT: [place] conjunctiva and NL buccal mucosa Neck: Supple, no tenderness Endocrine: No Thyromegaly. Vascular: No JVD or carotid bruit. Lymphatic: No cervical lymphadenopathy. Chest: CTA no DTP. Heart RRR, no extra sound or murmur. Abd: Soft, no tenderness, no rebound and no rigidity. Increase abd girth therefore clinically I could not exclude the possibility of intra abd mass or organomegaly. LE: No cyanosis or clubbing, no varices or edema. Neuro: A A O. Nl speech, comprehension and attention, normal focus. Nl and symetrical motor and tone examination through out. No nystagmus, no ataxia. Her expressive aphasia appears to be back to normal. No longer slow or sluggish []] Constitutional Vital Signs, click to edit/add: Last Vital Signs Temp 98.2 F 10/16/25 07:31 Pulse 74 10/16/25 08:06 Resp 18 10/16/25 07:32 BP 112/71 10/16/25 07:31 Pulse Ox 95 10/16/25 07:31 O2 Del Method Room Air 10/16/25 07:31 DS: Data Data Completed and Pending Labs on day of discharge: Labs from last 24 hours 10/16/25 10/15/25 10/15/25 07:24 20:59 19:48 Urine Color Lt. yellow Urine Clarity Clear Urine pH 5.5 Ur Specific [place] <=1.005 A Urine Protein Negative Urine Glucose (UA) Negative Urine Ketones Negative Urine Occult Blood Negative Urine Nitrite Negative Urine Bilirubin Negative Urine Urobilinogen 0.2 Ur Leukocyte Esterase Negative Urine RBC None seen Urine WBC 0-2 A Ur Squamous Epith Cells Rare Urine Crystals None seen Urine Bacteria Trace A Urine Casts None seen Urine Mucus None seen Ur Culture Indicated? No POC Glucose 97 113 H 10/15/25 10/15/25 16:37 11:52 Urine Color Urine Clarity Urine pH Ur Specific [place] Urine Protein Urine Glucose (UA) Urine Ketones Urine Occult Blood Urine Nitrite Urine Bilirubin Urine Urobilinogen Ur Leukocyte Esterase Urine RBC Urine WBC Ur Squamous Epith Cells Urine Crystals Urine Bacteria Urine Casts Urine Mucus Ur Culture Indicated? POC Glucose 118 H 105 Discharge Plan Discharge Disposition: Home, Self-Care Condition: Good Discharge Medications: New atorvastatin 40 mg Tablet 40 mg PO QHS Qty: 30 1RF aspirin 81 mg tablet,delayed release (DR/EC) 81 mg PO QD Qty: 60 1RF Continued alprazolam 0.5 mg tablet 0.5 mg PO DAILY estradiol 0.1 mg/24 hr patch weekly 1 patch topical QWEEK Januvia 100 mg tablet 100 mg PO DAILY sertraline 100 mg tablet 150 mg PO DAILY midodrine 5 mg tablet 5 mg PO BIDWM Rx Instructions: do NOT take within 3 hours of bedtime topiramate 100 mg tablet 100 mg PO QPM Print Language: Macedonian Forms: Portal Instructions Follow Up Appointments: Cyndie Canales CNP SatOct 20 8:00am [facility] [address] [place], [place] Neurology office closed- someone will call you at home on Saturday with appointment date and time Call [phone] to set up a follow up appt at outpatient neuro office for complex migraines
--- NOTE | 2025-10-18 09:39 | PC.NURSE ---
Appt. with [facility] Neurology on 12/30 @ 11am in the [place] office
--- NOTE | 2025-10-18 12:15 | CM.DCFOLLOWU ---
Person spoke with: Ashley How are you feeling? Good How is your pain? No pain Did you understand your discharge instructions? Yes Do you have any questions about your discharge instructions? No Were you given any prescriptions at discharge? Yes Were you able to get your prescriptions filled? No - I spoke with Lauryn and Atorvastatin was on back order. 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 Do you understand how to take your medications as ordered? Yes Do you have any questions about your follow up appointment and do you plan to keep your follow up appointment? No questions. She plans on keeping her appt. Is there anything else that you would like to discuss? No Questions/Comments/Concerns/Other:
== END 2025-10-16 10:30 | disposition home or self-care (01) | DRG 69 ==
LOC: ER 21:12 → MS 10-15 13:50
PROVIDERS: Physician Assistant; Admitting Provider Internal Medicine; Emergency Provider Emergency Medicine; Visit Provider Internal Medicine
DX: G45.9 Transient cerebral ischemic attack, unspecified (principal); G43.809 Other migraine, not intractable, without status migrainosus; E11.9 Type 2 diabetes mellitus without complications; Z79.84 Long term (current) use of oral hypoglycemic drugs; F32.A Depression, unspecified; F41.9 Anxiety disorder, unspecified; I95.89 Other hypotension; Z79.899 Other long term (current) drug therapy; Z95.818 Presence of other cardiac implants and grafts; Z98.84 Bariatric surgery status; Z90.710 Acquired absence of both cervix and uterus
CPT/HCPCS: 36415; 70450; 70496; 70498; 70553; 80053; 80061; 81001; 82948; 83036; 83735; 85025; 93005; 93306; 97161; 99285; A9575; J1650; Q0162; Q9967